=== PATIENT | female | born 1950 | race African-American/Black ===

== ENCOUNTER 2022-11-11 10:57 | Outpatient (REF) | payer MEDICAID, SELFPAY ==
[2022-11-11 15:05] LABS: Appearance Urine Clear; Color Urine Yellow; Glucose Urine UA Negative (Negative); Leukocyte Esterase Urine Negative (Negative); Nitrite Urine Negative (Negative); PH 5.5 (5.0-9.0); Urine Blood Negative (Negative); Urine Ketones Negative (Negative); Urine Protein Negative (Neg-Trace)
== END 2022-11-11 10:58 | disposition home or self-care (01) ==
LOC: HO.WFDLNP 10:57
PROVIDERS: Visit Provider Nurse Practitioner Family
DX: Z00.00 Encounter for general adult medical examination without abnormal findings (principal); R35.0 Frequency of micturition
CPT/HCPCS: 81003

== ENCOUNTER 2022-11-24 08:04 | Outpatient (REF) | payer MEDICAID, SELFPAY ==
[2022-11-24 11:16] LABS: MANUAL DIFF FLAG NO
[2022-11-24 11:43] LABS: Basophils Percent Auto 0.3 % (0-2); Eosinophils Absolute Auto 0.2 X10*3/uL (0.0-0.4); Eosinophils Percent Auto 3.6 % (0-4); Hematocrit 39.9 % (37.0-47.0); Hemoglobin 13.2 g/dl (12.0-16.0); Imm Gran Abs Auto 0.01 X10*3/uL (0.00-0.03); Imm Gran Pct Auto 0.2 % (0.0-0.4); Lymphocytes Absolute Auto 3.2 X10*3/uL (1.2-4.9); Lymphocytes Percent Auto 54.9 % (20-40); Mean Corpuscular HGB Conc 33.1 g/dl (31.0-35.0); Mean Corpuscular Hemoglobin 28.3 pg (27.0-33.0); Mean Corpuscular Volume 85.6 fL (80.0-98.0); Mean Platelet Volume 12.8 fL (9.4-12.3); Monocytes Absolute Auto 0.6 X10*3/uL (0.1-1.2); Monocytes Percent Auto 10.8 % (2-11); Neutrophils Absolute Auto 1.8 x10*3/uL (2.0-8.3); Neutrophils Percent Auto 30.2 % (45-73); Platelet Count 203 X10*3/uL (160-400); Red Blood Count 4.66 X10*6/uL (4.20-5.50); Red Cell Distribution Width 13.2 % (11.0-16.0); White Blood Count 5.8 X10*3/uL (4.8-10.8)
[2022-11-24 12:22] LABS: Alanine Aminotransferase 11 U/L (0-31); Albumin Level 3.8 g/dL (3.5-5.0); Alkaline Phosphatase 81 U/L (39-117); Anion Gap 13 (12-20); Aspartate Amino Transferase 19 U/L (5-31); Bilirubin Total 0.4 mg/dL (0.0-1.0); Blood Urea Nitrogen 27 mg/dL (9-16); Calcium 9.7 mg/dL (8.4-10.2); Carbon Dioxide 27 mmol/L (22-29); Chloride 105 mmol/L (96-108); Cholesterol 191 mg/dL; Estimated Glomerular Filt Rate 50; Glucose Fasting 88 mg/dL (60-99); HDL Cholesterol 51 mg/dL; LDL Cholesterol Calculated 122 mg/dl; Potassium 4.4 mmol/L (3.3-5.1); Sodium 141 mmol/L (135-145); Total Protein 6.9 g/dL (6.5-8.0); Triglycerides 92 mg/dL
[2022-11-24 12:27] LABS: TSH reflex Free T4 3.19 uIU/mL (0.32-4.0)
== END 2022-11-24 08:05 | disposition home or self-care (01) ==
LOC: HO.WFDLDS 08:04
PROVIDERS: Visit Provider Nurse Practitioner Family
DX: Z00.00 Encounter for general adult medical examination without abnormal findings (principal); R35.0 Frequency of micturition; H40.9 Unspecified glaucoma; M19.90 Unspecified osteoarthritis, unspecified site; I10 Essential (primary) hypertension
CPT/HCPCS: 36415; 80053; 80061; 84443; 85025

== ENCOUNTER 2022-12-24 08:23 | Outpatient (REF) | payer MEDICAID, SELFPAY ==
--- NOTE | ~2022-12-24 | MM_ITS ---
EXAMINATION: MM SCREENING DIGITAL BREAST TOMOSYNTHESIS, BILATERAL CLINICAL INFORMATION: Screening. Asymptomatic. The lifetime risk of breast cancer based on the Tyrer-Cuzick Model is 3.3%. COMPARISON: Mammography: This is a baseline mammogram. TECHNIQUE: Digital breast tomosynthesis is performed in both the craniocaudal and mediolateral oblique views along with computer-aided detection (CAD). Synthesized 2D images are generated from the tomosynthesis. FINDINGS: The breasts are almost entirely fatty (ACR BI-RADS breast composition Category a). There are no significant masses, abnormal calcifications, or other abnormalities. MM/MM tomosynthesis screening BI IMPRESSION: No mammographic evidence of malignancy. ASSESSMENT: BI-RADS BI-RADS 1 - Negative RECOMMENDATION: Routine annual mammography screening. 1 year F/U This examination should not preclude the clinical evaluation of a suspicious palpable abnormality. This patient's information was entered into a reminder system with a target due date for their next mammogram.
--- NOTE | ~2022-12-24 | MM_ITS ---
EXAMINATION: BONE DENSITOMETRY CLINICAL INDICATION: Asymptomatic menopausal state. COMPARISON: This is the patient's baseline examination. TECHNIQUE: Using a [employer] DXA System (software version: 13.1) manufactured by [employer], dual-energy x-ray absorptiometry was performed of the lumbar spine and left hip. The images are of good technical quality. Summary results are attached. FINDINGS: LEFT FEMUR, NECK: BMD 1.162 g/cm2, Z-score 1.0, T-score 0.9, normal. LEFT FEMUR, TOTAL: BMD 1.356 g/cm2, Z-score 2.6, T-score 2.8, normal. AP SPINE L1-L4 (excluding L3): The data of L1-L4 has been changed to exclude the L3 vertebral body, because degenerative sclerosis at this level may cause overestimation of lumbar spine density. BMD 1.380 g/cm2, Z-score 1.6, T-score 1.8, normal. IDENTIFIED RISK FACTORS: Menopause, hysterectomy, bilateral oophorectomy, thiazide, history of fracture (adult). HISTORY OF FRACTURE: None listed. MEDICATIONS: None listed. MM/XR DEXA axial skeleton IMPRESSION: 1. DIAGNOSIS: Normal bone density based on the lowest T-score value of 0.9 in the femoral neck applying World Health Organization criteria. 2. 10-YEAR FRACTURE RISK PREDICTION, FRAX: According to the guidelines, FRAX calculation should only be performed on patients in the osteopenia bone density category. Therefore, FRAX was not performed on this patient. 3. Treatment Recommendations: NOF guidelines recommend consideration for treatment in postmenopausal women and men age 50 and older presenting with the following: -A hip or vertebral (clinical or morphometric) fracture. -T-score less than or equal to -2.5 at the femoral neck or spine after appropriate evaluation to exclude secondary causes. -Low bone mass at the hip or spine and a 10-year fracture probability by FRAX of greater than or equal to 3% for hip fracture or greater than or equal to 20% for major osteoporotic fracture based on the [place] adapted WHO algorithm. 4. Other Recommendations: All treatment decisions require clinical judgment and consideration of individual patient factors, including patient preferences, comorbidities, previous drug use, risk factors not captured in the FRAX model (e.g. frailty, falls, vitamin D deficiency, increased bone turnover, interval significant decline in bone density) and possible under or overestimation of fracture risk by FRAX. FUTURE SCAN RECOMMENDATION: People with diagnosed cases of osteoporosis or at high risk for fracture should have regular bone mineral density tests. For patients eligible for Medicare, routine testing is allowed once every 2 years. The testing frequency can be increased to one year for patients who have rapidly progressing disease, those who are receiving or discontinuing medical therapy to restore bone mass, or have additional risk factors.
== END 2022-12-24 08:24 | disposition home or self-care (01) ==
LOC: HO.MAMMO 08:23
PROVIDERS: PCP Nurse Practitioner Family; Visit Provider Nurse Practitioner Family
DX: Z12.31 Encounter for screening mammogram for malignant neoplasm of breast (principal); Z13.820 Encounter for screening for osteoporosis; Z78.0 Asymptomatic menopausal state
CPT/HCPCS: 77063; 77067; 77080

== ENCOUNTER → 2022-12-24 08:30 | Outpatient (BNV) | payer MEDICAID, SELFPAY | PROVIDERS: PCP Nurse Practitioner Family; Visit Provider Radiology Diagnostic Radiology | DX: Z78.0 Asymptomatic menopausal state (principal) | CPT/HCPCS: 77063; 77067; 77080 ==

== ENCOUNTER 2022-12-25 09:06 | Outpatient (AMB) | payer MEDICAID, SELFPAY ==
--- NOTE | 2022-12-25 06:43 | A.OFFVIS_ITS ---
Intake Intake Visit Reasons: frequency Intake Note: NEW Patient presents today to established treatment for Urinary Frequency: Meds- None Allergies to Antibiotic- No Known Allergies Blood Thinner- None PVR- 38 ml Battery Starter Required: No Accompanied by: Daughter Allergies No Known Allergies Allergy (Verified 12/25/22 13:04) HPI HPI Comments History of Present Illness Details Araseli is a 72-year-old female, accompanied by her daughter, who presents today to the office with the complaints of urinary frequency. 12/25/2022? She is a Creole speaking female. She is accompanied by her daughter. Her daughter is present during the visit, who interprets for her. She mentions having daytime urinary frequency about every hour and wakes up five times at night to urinate. she also reports intermittent urinary leakage. However, denies hematuria, Denies recent UTI. She had constipation and she is taking OTC Senna with benefit. She reports normal bowel movements at this time. Her daughter states that she does not have any pain in the abdomen.?Her daughter states that she had total hysterectomy few years ago. The patient daughter is not unsure why it is done, but thinks that it may have been done due to premalignant cells on biopsy. On exam today there is no prolapse. Vaginal atrophy noted. There is no leak with valsalva appreciated. Evaluation today UA-- leukocytes: negative; blood: negative; catheterized urine PVR is 20mL. I did let them know that one of her BP medication, hydrochlorothiazide, is a diuretic and may be contributing to some of the urine frequency symptoms, but it is important that she takes her medication as prescribed by her PCP. Plan: Myrbetriq 25 mg daily and Vagifem 10 mcg twice a week. Follow up in 2 months. [facility] Medical History Arthritis Glaucoma Hypertension Surgical History History of hysterectomy Family History Father No problems noted. Mother No problems noted. Social History Housing: House Alcohol intake: never Patient Tobacco Use Status: Never used Tobacco e-Cigarette/Vaping Use: Never Used service: No Current occupational status: disabled Cognitive needs: No Hearing needs: Yes Vision needs: Yes (wears glasses) Review of Systems Const All systems reviewed & are unremarkable except as noted in HPI and below Reports no additional complaints Eyes Reports no additional complaints ENT Reports no additional complaints Card Denies dyspnea Resp Denies cough and Denies dyspnea GI Reports no additional complaints Reports no additional complaints Musc Reports no additional complaints Skin/Breast Denies rash and Denies unusual bruising Neuro Reports no additional complaints Psych Reports no additional complaints Endo Reports no additional complaints Benjie/Lymph Reports no additional complaints Aller/Immun Reports no additional complaints Physical Exam Const General: cooperative, healthy appearing and no acute distress Orientation/consciousness: patient oriented x3 HEENT Head: Yes normal to inspection, Yes normocephalic and Yes atraumatic Eyes Conjunctivae: conjunctivae normal Neck Neck: Yes normal visual inspection and Yes trachea midline Chest Chest palpation & inspection: normal inspection of the chest Resp Effort & Inspection: normal respiratory effort Cardio Rate: regular rate GI Inspection: Yes normal to inspection Palpation (GI): Soft to palpation General: No no CVA tenderness External Female Exam: normal external appearance Speculum Exam - Vagina: vagina atrophic Back/Spine/Pelvis Back: No no CVA tenderness Skin General skin exam: no rashes or lesions noted Neuro General: patient oriented x3 Extrem Right lower extremity: edema Left lower extremity: edema Psych Appearance: grossly normal Results AMB Urinalysis, Automated UA Leukoctes 0 Mary Jane/uL Last Edit by VALDEMAR Bolden on 12/25/22 09:26 UA Nitrite Negative Last Edit by VALDEMAR Bolden on 12/25/22 09:26 UA Urobilinogen 0.2 mg/dL Last Edit by VALDEMAR Bolden on 12/25/22 09:2 6 UA Protein 0 mg/dL Last Edit by VALDEMAR Bolden on 12/25/22 09:26 UA pH 7.0 Last Edit by Zeyad Calderón, RMA on 12/25/22 09:26 UA Blood 0 Yang/uL Last Edit by Zeyad Calderón A on 12/25/22 09:26 UA Specific [place] 1.015 Last Edit by Hebertcapricetrevon Goldirez, RMA on 12/25/22 09: 26 UA Ketone Negative Last Edit by Zeyad Calderón, A on 12/25/22 09:26 UA Bilirubin 0 mg/dL Last Edit by Zeyad Calderón, RMA on 12/25/22 09:26 UA Glucose 0 mg/dL Last Edit by Zeyad Calderón A on 12/25/22 09:26 Results Reviewed Results Reviewed: Laboratory Last Values Urine pH (Auto) 7.0 12/25/22 09:13 Specific [place] (Auto) 1.015 12/25/22 09:13 Urine Protein (Auto) 0 mg/dL 12/25/22 09:13 Glucose (UA)(Auto) 0 mg/dL 12/25/22 09:13 Urine Ketones (Auto) Negative 12/25/22 09:13 Urine Blood (Auto) 0 Yang/uL 12/25/22 09:13 Urine Nitrite (Auto) Negative 12/25/22 09:13 Urine Bilirubin (Auto) 0 mg/dL 12/25/22 09:13 Urine Urobilinogen (Auto) 0.2 mg/dL 12/25/22 09:13 Leukocyte Esterase (Auto) 0 Mary Jane/uL 12/25/22 09:13 Assessment & Plan Assessment & Plan (1) OAB (overactive bladder): Code(s): N32.81 - Overactive bladder (2) Vaginal atrophy: Code(s): N95.2 - Postmenopausal atrophic vaginitis Plan Myrbetriq 25 mg daily and Vagifem 10 mcg twice a week. Follow up in 2 months. Orders: Orders AMB Urinalysis Automated Today Z13.9 - Encounter for screening, unspecified AMB Post Void Residual by ultrasound Today N39.8 - Other specified disorders of urinary system Medications: New mirabegron ER (Myrbetriq) 25 mg PO DAILY 90 tabs 0RF estradiol (Vagifem) use at night Mon/Thurs 10 mcg vaginal 2XW 24 tabs 1RF Patient Instructions: The patient had an opportunity to ask questions regarding treatment plan. All questions were answered. Imaging, Laboratory studies and physical exam results were discussed and reviewed in detail. No major barriers to understanding were identified. The patient expressed understanding and agreement with the above treatment plan.? ? ? The patient is aware they should contact our office by phone for worsening of their current condition or the appearance of new symptoms. Compliance is encouraged with any medications and followup testing that is ordered.? ? ? It is a privilege to be allowed the opportunity to participate in the urologic care of your patient. If you have any questions or concerns regarding treatment for the above conditions please do not hesitate to contact me. The office telephone contact is [phone].? ? ? This note is constructed in part using voice recognition software. While every effort has been made to ensure accuracy administrator errors may have been included.? ? ? Yours sincerely,? ? ? Lashanda Cowart MD? ? Coding Level of Care Code New Pt Level 3 (72156) Diagnoses OAB (overactive bladder) N32.81 Vaginal atrophy N95.2
== END 2022-12-25 10:11 | disposition home or self-care (01) ==
PROVIDERS: PCP Hospitalist; Visit Provider Urology
DX: N32.81 Overactive bladder (principal); N95.2 Postmenopausal atrophic vaginitis
CPT/HCPCS: 99203

== ENCOUNTER → 2022-12-25 09:06 | Outpatient (BNVA) | payer MEDICAID, SELFPAY | PROVIDERS: PCP Hospitalist; Visit Provider Urology | DX: N32.81 Overactive bladder (principal); R35.0 Frequency of micturition; R35.1 Nocturia; N95.2 Postmenopausal atrophic vaginitis; Z79.899 Other long term (current) drug therapy | CPT/HCPCS: 99202 ==

== ENCOUNTER 2022-12-25 12:35 | Outpatient (AMB) | payer MEDICAID, SELFPAY ==
--- NOTE | 2022-12-25 12:39 | A.OFFPC_ITS ---
Vital Signs 12/25/22 12:53 Height 5 ft 6 in Weight 252 lb 2 oz BMI 40.7 BP 104/70 Blood Pressure Location Rt brachial Position Sitting Respiration 13 Pulse 80 Pulse Source Pulse Oximeter Temp 97.6 F Temp Source Temporal Artery Scan Pulse Oximetry (%) 99 Oxygen Delivery Method Room Air Intake Visit Reasons: f/u labs review, HTN Intake Note: Patient is here today for a follow up for lab review and hypertension. Patient is accompanied by her daughter who will also translate todays appointment. Engineer Process Required: Yes Engineer Process Name: Patient's daughter Accompanied by: Daughter Allergies No Known Allergies Allergy (Verified 12/25/22 13:04) Medication List - Last Reconciled 12/25/22 by Segundo Martinez CNP celecoxib (Celebrex) 200 mg PO DAILY 90 days dorzolamide-timolol (PF) 2-0.5 % 1 drp ophthalmic (eye) BID estradiol (Vagifem) 10 mcg vaginal 2XW hydrochlorothiazide 12.5 mg PO DAILY 90 days latanoprost 0.005% 1 drp ophthalmic (eye) QPM 90 days lidocaine 5% 1 patch topical DAILY 90 days losartan 50 mg PO DAILY 90 days mirabegron ER (Myrbetriq) 25 mg PO DAILY Tobacco use date assessed: 11/11/22 Fall risk assessment: No Falls in past year Last assessed Fall Risk: 12/25/22 Dental Screening Dental Screen Date: 12/25/22 Did you have a dental visit in the last 12 months?: Yes Did you have a dental problem in the last 6 months where you did not have access to dental care?: No Was dental information given to patient?: Patient has dentist HPI HPI Comments History of Present Illness Details 72-year-old Creole speaking female, accompanied by her daughter, presents for hypertension and recent labs review follow-up. She is on hydrochlorothiazide and losartan. She admits to taking her medication as prescribed. She reports tightness in her right knee with ambulation. She was seen by Urology today and was prescribed Mirabegron and Vagifem for OAB and was menopausal atrophic vaginitis. She recently had bone density scan and mammogram done. Results are pending. Interpretation by the patient's daughter per patient's preference. [facility] Medical History Arthritis Glaucoma Hypertension Surgical History History of hysterectomy Family History Father No problems noted. Mother No problems noted. Social History Housing: House Alcohol intake: never Patient Tobacco Use Status: Never used Tobacco e-Cigarette/Vaping Use: Never Used service: No Current occupational status: disabled Cognitive needs: No Hearing needs: Yes Vision needs: Yes (wears glasses) Questionnaire Thrive Questionnaire Date Thrive assessed: 11/11/22 ROHITH-7 AMB Questionnaire ROHITH-7 Date ROHITH - 7 assessed: 11/11/22 Source: Developed by Drs. Alin Gustafson, Radha Cardona, Andry Slater and colleagues, with an educational yamilex from [employer]. Review of Systems Const Details: Const Denies chills, Denies fatigue, Denies fever(s), Denies headache(s) and Denies weakness ENT Denies dizziness and Denies headache(s) Card Denies chest pain, Denies lightheadedness, Denies dyspnea and Denies other (Palpitations) Resp Denies cough, Denies dyspnea, Denies wheezing and Denies other ( shortness of breath) GI Denies abdominal pain, Denies melena, Denies hematochezia, Denies change in bowel habits, Denies dyspepsia and Denies nausea Denies hematuria and Denies dysuria Musc Reports right knee tightness, Denies abnormal gait, Denies myalgias, Denies arthralgias, Denies numbness and Denies tingling Skin/Breast Denies rash, Denies unusual bruising and Denies wounds Neuro Denies abnormal gait, Denies dizziness, Denies headache(s), Denies memory loss, Denies numbness, Denies Sensory deficit (Neuro), Denies tingling and Denies weakness Psych Denies anxiety and Denies depression Endo Denies fatigue Aller/Immun Denies wheezing Physical exam (Primary Care) Vital Signs: Last Vital Signs Temp 97.6 F 12/25/22 12:53 Pulse 80 12/25/22 12:53 Resp 13 12/25/22 12:53 BP 104/70 07/27/23 12:53 Pulse Ox 99 12/25/22 12:53 Oxygen Delivery Method Room Air 12/25/22 12:53 BMI result Body Mass Index 40.7 Tobacco/Smoking Status: Tobacco use Status Tobacco use date assessed 11/11/22 12/25/22 12:39 Patient Tobacco Use Status Never used Tobacco 12/25/22 12:39 e-Cigarette/Vaping Use Never Used 12/25/22 12:39 Thrive Assessment: Date of Thrive Assessment Date Thrive assessed 11/11/22 12/25/22 12:39 Const Other: General: no acute distress and well developed Nutritional Appearance: well nourished Orientation/consciousness: patient oriented x3 HENMT Head: Yes normocephalic and Yes atraumatic Eyes General: appearance normal, both eyes and all related structures Pupils: Equal, round and reactive pupils present EOM: EOMs intact bilaterally Resp Effort & Inspection: normal respiratory effort Auscultation: clear to auscultation bilaterally Cardio Rate: regular rate Rhythm: regular rhythm Heart sounds: S1 normal heart sound present, S2 normal heart sound present, no gallops, no murmurs and no rubs GI Palpation (GI): No Abdominal aortic bruit present, Soft to palpation, nontender, No hepatosplenomegaly present and No Rebound tenderness present Auscultation: normal bowel sounds General: Yes no CVA tenderness Back/Spine/Pelvis Back: no CVA tenderness Cervical Spine: cervical ROM normal and No Cervical spine tenderness Thoracic/Lumbar Spine: thoraco-lumbar ROM normal, No pain with thoraco-lumbar ROM, No thoracic spinal tenderness and No lumbar spinal tenderness Extrem General: Yes normal to inspection, No edema and No calf tenderness Skin General: warm and dry. Normal skin color. Normal skin turgor Lesions: no lesions Rashes: no rashes Trauma: no lacerations or abrasions Wounds: no wounds Nails: normal Neuro General: patient oriented x3, gait normal and no focal neuro deficit Cranial nerves: Yes Equal, round and reactive pupils present Cognition (Neuro): normal cognition Gait exam (Neuro): Normal gait present Sensory Exam: No Sensory deficit (Neuro) Psych Affect: normal affect Results AMB Urinalysis, Automated UA Leukoctes 0 Mary Jane/uL Last Edit by VALDEMAR Bolden on 12/25/22 09:26 UA Nitrite Negative Last Edit by Zeyad Calderón Mai on 12/25/22 09:26 UA Urobilinogen 0.2 mg/dL Last Edit by VALDEMAR Bolden on 12/25/22 09:2 6 UA Protein 0 mg/dL Last Edit by Zeyad Calderón A on 12/25/22 09:26 UA pH 7.0 Last Edit by Zeyad Calderón A on 12/25/22 09:26 UA Blood 0 Yang/uL Last Edit by Zeyad Calderón A on 12/25/22 09:26 UA Specific [place] 1.015 Last Edit by Zeyad Calderón Mai on 12/25/22 09: 26 UA Ketone Negative Last Edit by Zeyad Calderón Mai on 12/25/22 09:26 UA Bilirubin 0 mg/dL Last Edit by Zeyad Calderón Mai on 12/25/22 09:26 UA Glucose 0 mg/dL Last Edit by Zeyad Calderón [facility] on 12/25/22 09:26 Assessment and Plan Assessment & Plan (1) Hypertension: Code(s): I10 - Essential (primary) hypertension Plan: Blood pressure is controlled, 104/70 today, within goal of less than 140/90 Continue to take hydrochlorothiazide and losartan as prescribed Low-sodium diet encouraged Recent lab results reviewed with patient Follow-up with urology as planned Follow-up in 3 months or return sooner with symptoms or concerns Verbalized understanding and agreed with treatment plan. (2) Arthritis: Code(s): M19.90 - Unspecified osteoarthritis, unspecified site Plan: She reports tightness in her right knee with ambulation Celebrex as prescribed for pain or discomfort Warm/cold compresses encouraged PT referral made Return with worsening or new symptoms Verbalized understanding and agreed with treatment plan. Orders: Orders PT Evaluation and Treatment Today I10 - Essential (primary) hypertension Coding Level of Care Code Est Pt Level 3 (61445) Diagnoses Hypertension I10 Arthritis M19.90 Time Spent (min) 25
[2022-12-25 12:53] VITALS: BP 104/70; PULSE 80; RESP 13; TEMP 36.4; O2SAT 99; BMI 40.7
== END 2022-12-25 13:17 | disposition home or self-care (01) ==
PROVIDERS: PCP Nurse Practitioner Family; Visit Provider Nurse Practitioner Family
DX: I10 Essential (primary) hypertension (principal); M19.90 Unspecified osteoarthritis, unspecified site
CPT/HCPCS: 99213

== ENCOUNTER 2023-04-10 15:02 | Outpatient (AMB) | payer MEDICAID, SELFPAY ==
--- NOTE | 2023-04-10 15:16 | MHC.PC.OV ---
Vital Signs 04/10/23 15:19 04/10/23 15:31 Height 5 ft 6 in Weight 261 lb BMI 42.1 BP 144/68 H 126/70 Blood Pressure Location Rt brachial Rt brachial Position Sitting Sitting Respiration 14 Pulse 62 Pulse Source Pulse Oximeter Pulse Oximetry (%) 97 Oxygen Delivery Method Room Air Intake Visit Reasons: 3 mos HTN Intake Note: Patient is here to follow up for hypertension. Patient reports she is still in pain- bilateral hips and knees. [employer] Hel[employer] Required: No Accompanied by: Daughter Allergies No Known Allergies Allergy (Verified 04/10/23 15:25) Medication List - Last Reconciled 04/10/23 by Segundo Martinez CNP celecoxib (Celebrex) 200 mg PO DAILY 90 days dorzolamide-timolol (PF) 2-0.5 % 1 drp ophthalmic (eye) BID estradiol (Vagifem) 10 mcg vaginal 2XW hydrochlorothiazide 12.5 mg PO DAILY 90 days latanoprost 0.005% 1 drp ophthalmic (eye) QPM 90 days lidocaine 5% 1 patch topical DAILY 90 days losartan 50 mg PO DAILY 90 days mirabegron ER (Myrbetriq) 25 mg PO DAILY miscellaneous medical supply 1 cane for ambulation Tobacco use date assessed: 11/11/22 HPI HPI Comments History of Present Illness Details 72-year-old Creole speaking female, accompanied by her daughter, presents for hypertension follow-up She is on losartan and HCTZ which she admits to taking as prescribed She notes that her home BP readings are usually in the 1302/180s She reports pain to her bilateral hip and knee pain upon standing. She has history of arthritis of the hips and knees. Denies tingling or numbness. She states she ran out of lidocaine patch and that the patch would not stick on the skin; she prefers a cream. Her daughter notes that she canceled her mother's colonoscopy because it is an invasive procedure that her mother is no longer needs due to old age. [facility] Medical History Arthritis Glaucoma Hypertension Surgical History History of hysterectomy Family History Father No problems noted. Mother No problems noted. Social History Housing: House Alcohol intake: never Patient Tobacco Use Status: Never used Tobacco e-Cigarette/Vaping Use: Never Used service: No Current occupational status: disabled Cognitive needs: No Hearing needs: Yes Vision needs: Yes (wears glasses) Questionnaire Thrive Questionnaire Date Thrive assessed: 11/11/22 ROHITH-7 AMB Questionnaire ROHITH-7 Date ROHITH - 7 assessed: 11/11/22 Source: Developed by Drs. Alin Gustafson, Radha Cardona, Andry Slater and colleagues, with an educational yamilex from [employer]. Review of Systems Const Details: Const Denies chills, Denies fatigue, Denies fever(s), Denies headache(s) and Denies weakness ENT Denies dizziness and Denies headache(s) Card Denies chest pain, Denies lightheadedness, Denies dyspnea and Denies other (Palpitations) Resp Denies cough, Denies dyspnea, Denies wheezing and Denies other ( shortness of breath) GI Denies abdominal pain, Denies melena, Denies hematochezia, Denies change in bowel habits, Denies dyspepsia and Denies nausea Denies hematuria and Denies dysuria Musc Reports as per HPI Skin/Breast Denies rash, Denies unusual bruising and Denies wounds Neuro Denies abnormal gait, Denies dizziness, Denies headache(s), Denies memory loss, Denies numbness, Denies Sensory deficit (Neuro), Denies tingling and Denies weakness Psych Denies anxiety, Denies depression, Denies memory loss Endo Denies cold intolerance, Denies fatigue, Denies heat intolerance, Denies polydipsia and Denies polyuria Aller/Immun Denies wheezing Physical exam (Primary Care) Vital Signs: Last Vital Signs Pulse 62 04/10/23 15:19 Resp 14 04/10/23 15:19 BP 144/68 H 04/10/23 15:19 Pulse Ox 97 04/10/23 15:19 Oxygen Delivery Method Room Air 04/10/23 15:19 BMI result Body Mass Index 42.1 Tobacco/Smoking Status: Tobacco use Status Tobacco use date assessed 11/11/22 04/10/23 15:16 Patient Tobacco Use Status Never used Tobacco 04/10/23 15:16 e-Cigarette/Vaping Use Never Used 04/10/23 15:16 Thrive Assessment: Date of Thrive Assessment Date Thrive assessed 11/11/22 04/10/23 15:16 Const Other: General: no acute distress and well developed Nutritional Appearance: well nourished Orientation/consciousness: patient oriented x3 HENMT Head: Yes normocephalic and Yes atraumatic Eyes General: appearance normal, both eyes and all related structures Pupils: Equal, round and reactive pupils present EOM: EOMs intact bilaterally Resp Effort & Inspection: normal respiratory effort Auscultation: clear to auscultation bilaterally Cardio Rate: regular rate Rhythm: regular rhythm Heart sounds: S1 normal heart sound present, S2 normal heart sound present, no gallops, no murmurs and no rubs GI Palpation (GI): No Abdominal aortic bruit present, Soft to palpation, nontender, No hepatosplenomegaly present and No Rebound tenderness present Auscultation: normal bowel sounds General: Yes no CVA tenderness Back/Spine/Pelvis Back: no CVA tenderness Cervical Spine: cervical ROM normal and No Cervical spine tenderness Thoracic/Lumbar Spine: thoraco-lumbar ROM normal, No pain with thoraco-lumbar ROM, No thoracic spinal tenderness and No lumbar spinal tenderness Extrem General: Yes normal to inspection, No edema and No calf tenderness Skin General: warm and dry. Normal skin color. Normal skin turgor Lesions: no lesions Rashes: no rashes Trauma: no lacerations or abrasions Wounds: no wounds Nails: normal Neuro General: patient oriented x3, gait normal and no focal neuro deficit Cranial nerves: Yes Equal, round and reactive pupils present Cognition (Neuro): normal cognition Gait exam (Neuro): Normal gait present Sensory Exam: No Sensory deficit (Neuro) Psych Appearance: grossly normal Affect: normal affect Attitude: cooperative Thought process: Normal thought process present Assessment and Plan Assessment & Plan (1) Hypertension: Code(s): I10 - Essential (primary) hypertension Qualifiers: Hypertension type: primary hypertension Qualified Code(s): I10 - Essential (primary) hypertension Plan: Blood pressure is 126/70, within goal of less than 140/90 Continue with current treatment regimen Low-sodium diet encouraged Follow-up in 3 months or return sooner with symptoms or concerns Verbalized understanding and agreed with treatment plan. (2) Arthritis: Code(s): M19.90 - Unspecified osteoarthritis, unspecified site Plan: Reports pain to her bilateral hip and knee pain upon standing Diclofenac cream ordered. Advised to apply to painful areas as prescribed Continue to take Celebrex as prescribed Warm/cold compresses encouraged Physical therapy referral made Return with worsening or new symptoms Verbalized understanding and agreed with treatment plan. (3) Colon cancer screening: Code(s): Z12.11 - Encounter for screening for malignant neoplasm of colon Plan: Her daughter notes that she canceled her mother's colonoscopy because it is an invasive procedure that her mother is no longer needs due to old age. Patient's daughter notes that her mother will get Cologuard test done as recommended Cologuard ordered Orders: Orders PT Evaluation and Treatment Today M19.90 - Unspecified osteoarthritis, unspecified site Referrals Cologuard Test Z12.11 - Encounter for screening for malignant neoplasm of colon, Z12.12 - Encounter for screening for malignant neoplasm of rectum Medications: New diclofenac sodium 1% (Voltaren Arthritis Pain) apply to right shoulder 2 grams topical QID PRN 100 grams 2RF pain 30 days M25.511 - Pain in right shoulder Discontinued lidocaine 5% leave on most painful area for up to 12 hrs Discontinued Reason: Doctor's Order 1 patch topical DAILY 90 days 30 ea 1RF Coding Level of Care Code Est Pt Level 3 (29811) Diagnoses Primary hypertension I10 Hypertension type: primary hypertension Arthritis M19.90 Colon cancer screening Z12.11
[2023-04-10 15:19] VITALS: BP 144/68; PULSE 62; RESP 14; O2SAT 97; BMI 42.1
[2023-04-10 15:31] VITALS: BP 126/70
== END 2023-04-10 15:48 | disposition home or self-care (01) ==
PROVIDERS: PCP Nurse Practitioner Family; Visit Provider Nurse Practitioner Family
DX: I10 Essential (primary) hypertension (principal); M19.90 Unspecified osteoarthritis, unspecified site; Z12.11 Encounter for screening for malignant neoplasm of colon
CPT/HCPCS: 99213

== ENCOUNTER 2023-07-21 17:15 | Outpatient (AMB) | payer MEDICAID, SELFPAY ==
--- NOTE | 2023-07-21 17:20 | A.OFFPC_ITS ---
Vital Signs 07/21/23 17:23 Height 5 ft 6 in Weight 261 lb BMI 42.1 BP 118/74 Blood Pressure Location Lt brachial Pulse 64 Pulse Source Pulse Oximeter Temp 98.4 F Temp Source Oral Pulse Oximetry (%) 99 Oxygen Delivery Method Room Air Intake Visit Reasons: 3 mos HTN Intake Note: Patient is here to follow up on hypertension today. Allergies No Known Allergies Allergy (Verified 07/21/23 17:49) Medication List - Last Reconciled 07/21/23 by Segundo Martinez CNP acetazolamide 125 mg PO BID celecoxib (Celebrex) 200 mg PO DAILY 90 days diclofenac sodium 1% (Voltaren Arthritis Pain) 2 grams topical QID PRN 30 days dorzolamide-timolol (PF) 2-0.5 % 1 drp ophthalmic (eye) BID estradiol (Vagifem) 10 mcg vaginal 2XW hydrochlorothiazide 12.5 mg PO DAILY 90 days latanoprost 0.005% 1 drp ophthalmic (eye) QPM 90 days losartan 50 mg PO DAILY 90 days mirabegron ER (Myrbetriq) 25 mg PO DAILY miscellaneous medical supply 1 cane for ambulation Tobacco use date assessed: 07/21/23 Fall risk assessment: No Falls in past year Last assessed Fall Risk: 07/21/23 Dental Screening Dental Screen Date: 07/21/23 Did you have a dental visit in the last 12 months?: Yes Did you have a dental problem in the last 6 months where you did not have access to dental care?: No Was dental information given to patient?: Patient has dentist HPI HPI Comments History of Present Illness Details 72-year-old Creole speaking female, acco mpanied by her daughter, presents for hypertension follow-up She is on losartan and HCTZ which she admits to taking as prescribed Interpretation by the patient's daughter per patient's preference [facility] Medical History Arthritis Glaucoma Hypertension Surgical History History of hysterectomy Family History Father No problems noted. Mother No problems noted. Social History Housing: House Alcohol intake: never Patient Tobacco Use Status: Never used Tobacco e-Cigarette/Vaping Use: Never Used service: No Current occupational status: disabled Cognitive needs: No Hearing needs: Yes Vision needs: Yes (wears glasses) Questionnaire Thrive Questionnaire Date Thrive assessed: 11/11/22 ROHITH-7 AMB Questionnaire ROHITH-7 Date ROHITH - 7 assessed: 11/11/22 Source: Developed by Drs. Alin Gustafson, Radha Cardona, Andry Slater and colleagues, with an educational yamilex from [employer]. Review of Systems Const Details: Const Denies chills, Denies fatigue, Denies fever(s), Denies headache(s) and Denies weakness ENT Denies dizziness and Denies headache(s) Card Denies chest pain, Denies lightheadedness, Denies dyspnea and Denies other (Palpitations) Resp Denies cough, Denies dyspnea, Denies wheezing and Denies other ( shortness of breath) GI Denies abdominal pain, Denies melena, Denies hematochezia, Denies change in bowel habits, Denies dyspepsia and Denies nausea Denies hematuria and Denies dysuria Musc Denies abnormal gait, Denies myalgias, Denies arthralgias, Denies numbness and Denies tingling Skin/Breast Denies rash, Denies unusual bruising and Denies wounds Neuro Denies abnormal gait, Denies dizziness, Denies headache(s), Denies memory loss, Denies numbness, Denies Sensory deficit (Neuro), Denies tingling and Denies weakness Psych Denies anxiety, Denies depression, Denies memory loss Endo Denies cold intolerance, Denies fatigue, Denies heat intolerance, Denies polydipsia and Denies polyuria Aller/Immun Denies wheezing Physical exam (Primary Care) Vital Signs: Last Vital Signs Temp 98.4 F 07/21/23 17:23 Pulse 64 07/21/23 17:23 BP 118/74 07/21/23 17:23 Pulse Ox 99 07/21/23 17:23 Oxygen Delivery Method Room Air 07/21/23 17:23 BMI result Body Mass Index 42.1 Tobacco/Smoking Status: Tobacco use Status Tobacco use date assessed 07/21/23 07/21/23 17:28 Patient Tobacco Use Status Never used Tobacco 07/21/23 17:20 e-Cigarette/Vaping Use Never Used 07/21/23 17:20 Thrive Assessment: Date of Thrive Assessment Date Thrive assessed 11/11/22 07/21/23 17:20 Const Other: General: no acute distress and well developed Nutritional Appearance: well nourished Orientation/consciousness: patient oriented x3 HENMT Head: Yes normocephalic and Yes atraumatic Eyes General: appearance normal, both eyes and all related structures Pupils: Equal, round and reactive pupils present EOM: EOMs intact bilaterally Resp Effort & Inspection: normal respiratory effort Auscultation: clear to auscultation bilaterally Cardio Rate: regular rate Rhythm: regular rhythm Heart sounds: S1 normal heart sound present, S2 normal heart sound present, no gallops, no murmurs and no rubs GI Palpation (GI): No Abdominal aortic bruit present, Soft to palpation, nontender, No hepatosplenomegaly present and No Rebound tenderness present Auscultation: normal bowel sounds General: Yes no CVA tenderness Back/Spine/Pelvis Back: no CVA tenderness Cervical Spine: cervical ROM normal and No Cervical spine tenderness Thoracic/Lumbar Spine: thoraco-lumbar ROM normal, No pain with thoraco-lumbar ROM, No thoracic spinal tenderness and No lumbar spinal tenderness Extrem General: Yes normal to inspection, No edema and No calf tenderness Skin General: warm and dry. Normal skin color. Normal skin turgor Neuro General: patient oriented x3, gait normal and no focal neuro deficit Cranial nerves: Yes Equal, round and reactive pupils present Cognition (Neuro): normal cognition Gait exam (Neuro): Normal gait present Sensory Exam: No Sensory deficit (Neuro) Psych Appearance: grossly normal Affect: normal affect Attitude: cooperative Thought process: Normal thought process present Assessment and Plan Assessment & Plan (1) Hypertension: Code(s): I10 - Essential (primary) hypertension Qualifiers: Hypertension type: primary hypertension Qualified Code(s): I10 - Essential (primary) hypertension Plan: Blood pressure is controlled, 118/74 Continue current treatment regimen Low-sodium diet encouraged Follow-up in 3 months or return sooner with symptoms or concerns Verbalized understanding and agreed with treatment plan Coding Level of Care Code Est Pt Level 3 (51641) Diagnoses Primary hypertension I10 Hypertension type: primary hypertension
[2023-07-21 17:23] VITALS: BP 118/74; PULSE 64; TEMP 36.9; O2SAT 99; BMI 42.1
== END 2023-07-21 18:08 | disposition home or self-care (01) ==
PROVIDERS: PCP Nurse Practitioner Family; Visit Provider Nurse Practitioner Family
DX: I10 Essential (primary) hypertension (principal)
CPT/HCPCS: 99213

== ENCOUNTER 2023-08-28 15:34 | Outpatient (AMB) | payer MEDICAID, SELFPAY ==
[2023-08-28 15:40] VITALS: BP 138/84; PULSE 72; RESP 13; TEMP 36.2; O2SAT 99; BMI 39.1
--- NOTE | 2023-08-28 15:40 | A.OFFPC_ITS ---
Vital Signs 08/28/23 15:40 08/28/23 15:54 Height 5 ft 6 in Weight 242 lb 2 oz BMI 39.1 BP 138/84 116/70 Blood Pressure Location Rt brachial Lt brachial Position Sitting Sitting Respiration 13 Pulse 72 Pulse Source Pulse Oximeter Temp 97.2 F Temp Source Temporal Artery Scan Pulse Oximetry (%) 99 Oxygen Delivery Method Room Air Intake Visit Reasons: 09/10/23 cataracts right eye Manager Respiratory Care Required: Yes Manager Respiratory Care Name: Daughter Accompanied by: Daughter Allergies No Known Allergies Allergy (Verified 08/28/23 15:52) Medication List - Last Reconciled 08/28/23 by Segundo Martinez CNP acetazolamide 125 mg PO BID celecoxib (Celebrex) 200 mg PO DAILY 90 days diclofenac sodium 1% (Voltaren Arthritis Pain) 2 grams topical QID PRN 30 days dorzolamide-timolol (PF) 2-0.5 % 1 drp ophthalmic (eye) BID estradiol (Vagifem) 10 mcg vaginal 2XW hydrochlorothiazide 12.5 mg PO DAILY 90 days latanoprost 0.005% 1 drp ophthalmic (eye) QPM 90 days losartan 50 mg PO DAILY 90 days mirabegron ER (Myrbetriq) 25 mg PO DAILY miscellaneous medical supply 1 cane for ambulation Tobacco use date assessed: 07/21/23 Last assessed Fall Risk: 08/28/23 Dental Screening Dental Screen Date: 07/21/23 Did you have a dental visit in the last 12 months?: No Did you have a dental problem in the last 6 months where you did not have access to dental care?: No Was dental information given to patient?: Patient has dentist HPI HPI Comments History of Present Illness Details 72-year-old Creole speaking female, acco mpanied by her daughter, presents for preop evaluation for cataract surgery which she has scheduled for 09/10/2023 [facility] She admits to taking her medications as prescribed without adverse reactions She denies acute symptoms at this time Interpretation by the patient's daughter per patient's preference [facility] Medical History Arthritis Glaucoma Hypertension Surgical History History of hysterectomy Family History Father No problems noted. Mother No problems noted. Social History Housing: House Alcohol intake: never Patient Tobacco Use Status: Never used Tobacco e-Cigarette/Vaping Use: Never Used service: No Current occupational status: disabled Cognitive needs: No Hearing needs: No Vision needs: Yes (wears glasses) Questionnaire Thrive Questionnaire Date Thrive assessed: 11/11/22 ROHITH-7 AMB Questionnaire ROHITH-7 Date ROHITH - 7 assessed: 11/11/22 Source: Developed by Drs. Alin Gustafson, Radha Cardona, Andry Slater and colleagues, with an educational yamilex from [employer]. Review of Systems Const Details: Const Denies chills, Denies fatigue, Denies fever(s), Denies headache(s) and Denies weakness ENT Denies dizziness and Denies headache(s) Card Denies chest pain, Denies lightheadedness, Denies dyspnea and Denies other (Palpitations) Resp Denies cough, Denies dyspnea, Denies wheezing and Denies other ( shortness of breath) GI Denies abdominal pain, Denies melena, Denies hematochezia, Denies change in bowel habits, Denies dyspepsia and Denies nausea Denies hematuria and Denies dysuria Musc Denies abnormal gait, Denies myalgias, Denies arthralgias, Denies numbness and Denies tingling Skin/Breast Denies rash, Denies unusual bruising and Denies wounds Neuro Denies abnormal gait, Denies dizziness, Denies headache(s), Denies memory loss, Denies numbness, Denies Sensory deficit (Neuro), Denies tingling and Denies weakness Psych Denies anxiety, Denies depression, Denies memory loss Endo Denies cold intolerance, Denies fatigue, Denies heat intolerance, Denies polydipsia and Denies polyuria Aller/Immun Denies wheezing Physical exam (Primary Care) Tobacco/Smoking Status: Tobacco use Status Tobacco use date assessed 07/21/23 07/21/23 17:28 Patient Tobacco Use Status Never used Tobacco 07/21/23 17:20 e-Cigarette/Vaping Use Never Used 07/21/23 17:20 Thrive Assessment: Date of Thrive Assessment Date Thrive assessed 11/11/22 07/21/23 17:20 Const Other: General: no acute distress and well developed Nutritional Appearance: well nourished Orientation/consciousness: patient oriented x3 HENMT Head: Yes normocephalic and Yes atraumatic Eyes General: appearance normal, both eyes and all related structures Pupils: Equal, round and reactive pupils present EOM: EOMs intact bilaterally Resp Effort & Inspection: normal respiratory effort Auscultation: clear to auscultation bilaterally Cardio Rate: regular rate Rhythm: regular rhythm Heart sounds: S1 normal heart sound present, S2 normal heart sound present, no gallops, no murmurs and no rubs GI Palpation (GI): No Abdominal aortic bruit present, Soft to palpation, nontender, No hepatosplenomegaly present and No Rebound tenderness present Auscultation: normal bowel sounds General: Yes no CVA tenderness Back/Spine/Pelvis Back: no CVA tenderness Cervical Spine: cervical ROM normal and No Cervical spine tenderness Thoracic/Lumbar Spine: thoraco-lumbar ROM normal, No pain with thoraco-lumbar ROM, No thoracic spinal tenderness and No lumbar spinal tenderness Extrem General: Yes normal to inspection, No edema and No calf tenderness Skin General: warm and dry. Normal skin color. Normal skin turgor Neuro General: patient oriented x3, gait normal and no focal neuro deficit Cranial nerves: Yes Equal, round and reactive pupils present Cognition (Neuro): normal cognition Gait exam (Neuro): Normal gait present Sensory Exam: No Sensory deficit (Neuro) Psych Appearance: grossly normal Affect: normal affect Attitude: cooperative Thought process: Normal thought process present Assessment and Plan Assessment & Plan (1) Preop examination: Code(s): Z01.818 - Encounter for other preprocedural examination Plan: Physical exam is benign CBC and CMP ordered; advised to get blood work done before cataract surgery; will review and make changes as needed She currently has no medical contraindications for cataract surgery Follow-up with PCP as planned Verbalized understanding and agreed with the plan (2) Cataract, right eye: Code(s): H26.9 - Unspecified cataract Plan: As above Orders: Orders Complete Blood Count Auto Diff Today Z01.818 - Encounter for other preprocedural examination Comprehensive [place]. Panel Fast Today Z01.818 - Encounter for other preprocedural examination Coding Level of Care Code Est Pt Level 3 (83556) Diagnoses Preop examination Z01.818 Cataract, right eye H26.9
[2023-08-28 15:54] VITALS: BP 116/70
== END 2023-08-28 16:03 | disposition home or self-care (01) ==
PROVIDERS: PCP Nurse Practitioner Family; Visit Provider Nurse Practitioner Family
DX: Z01.818 Encounter for other preprocedural examination (principal); H26.9 Unspecified cataract
CPT/HCPCS: 99213

== ENCOUNTER 2023-09-01 08:15 | Outpatient (REF) | payer MEDICAID, SELFPAY ==
[2023-09-01 12:51] LABS: MANUAL DIFF FLAG NO
[2023-09-01 13:03] LABS: Basophils Percent Auto 0.2 % (0-2); Eosinophils Absolute Auto 0.1 X10*3/uL (0.0-0.4); Eosinophils Percent Auto 1.1 % (0-4); Hematocrit 42.3 % (37.0-47.0); Hemoglobin 14.3 g/dl (12.0-16.0); Imm Gran Abs Auto 0.01 X10*3/uL (0.00-0.03); Imm Gran Pct Auto 0.2 % (0.0-0.4); Lymphocytes Absolute Auto 2.5 X10*3/uL (1.2-4.9); Lymphocytes Percent Auto 47.7 % (20-40); Mean Corpuscular HGB Conc 33.8 g/dl (31.0-35.0); Mean Corpuscular Hemoglobin 28.2 pg (27.0-33.0); Mean Corpuscular Volume 83.4 fL (80.0-98.0); Mean Platelet Volume 12.6 fL (9.4-12.3); Monocytes Absolute Auto 0.5 X10*3/uL (0.1-1.2); Neutrophils Absolute Auto 2.2 x10*3/uL (2.0-8.3); Neutrophils Percent Auto 41.8 % (45-73); Platelet Count 190 X10*3/uL (160-400); Red Blood Count 5.07 X10*6/uL (4.20-5.50); White Blood Count 5.3 X10*3/uL (4.8-10.8)
[2023-09-01 13:27] LABS: Alanine Aminotransferase 12 U/L (0-31); Alkaline Phosphatase 86 U/L (39-117); Anion Gap 11 (12-20); Aspartate Amino Transferase 17 U/L (5-31); Bilirubin Total 0.3 mg/dL (0.0-1.0); Blood Urea Nitrogen 24 mg/dL (9-16); Calcium 9.5 mg/dL (8.4-10.2); Carbon Dioxide 26 mmol/L (22-29); Chloride 109 mmol/L (96-108); Estimated Glomerular Filt Rate 49; Glucose Fasting 109 mg/dL (60-99); Potassium 3.6 mmol/L (3.3-5.1); Sodium 142 mmol/L (135-145); Total Protein 7.1 g/dL (6.5-8.0)
== END 2023-09-01 08:16 | disposition home or self-care (01) ==
LOC: HO.WFDLDS 08:15
PROVIDERS: Visit Provider Nurse Practitioner Family
DX: Z01.818 Encounter for other preprocedural examination (principal)
CPT/HCPCS: 36415; 80053; 85025

== ENCOUNTER 2023-09-01 13:00 | Outpatient (RCR) | payer MEDICAID, SELFPAY ==
[2023-08-04 13:01] VITALS: BP 130/64; PULSE 74; O2SAT 100
--- NOTE | 2023-08-04 14:08 | MHC.PT.EP ---
[facility] [place] Office [place] Office [place] Office [address] Jimmy Asif [address] [phone] F: [phone] F: [phone] F: [phone] F: [phone] Physical Therapy Plan of Care Date of Evaluation: 08/04/23 Date of Surgery: Diagnosis: M19.90 Unspecified osteo-arthritis, unspecified site, by Segundo Martinez CNP date of script 04/10/23 Assessment: Pt is a 73 y/o female (primary language is [place] Creole) with PMH significant for glaucoma, HTN, and OA, referred to PT from PCP Segundo Martinez DNP, for treatment of unspecified OA (date of referral was 04/10/23 (PT was previously contacted in June and did not make appt Pt seen for PT eval on 08/04/23.. Pt presents to the office expressing pain in L>R knee, back, and L shoulder. She exhibits decreased mobility, decreased AROM of the L>R knee, (+) valgus deformity of R>L knee exhibiting step to pattern with use of std cane in R UE. Pt is obese and lives sedentary lifestyle with no history of performing any formal or regular exercise. Pt is accompanied by her daughter, Mariann who acted as her policy manager per pt request. Per report of her daughter, she leaves the house once a week for lutheran and for medical appts. She states her mother has an intolerance for ambulating in the stores much recently due to pain and fatigue. Pt will benefit from attending skilled PT services at a frequency of 1x-2x/week x 4-[address] and will rely on transportation from her daughter. Therapist educated patient in the benefit of attending PT twice weekly to accelerate gains, however patient's daughter states they will likely start with PT once a week due to her schedule. Pt was educated re: benefit of PT and goals of PT. As for start of treatment, pt was encouraged to get up and move every hour, avoid stationary positions, use std cane at all times, and try to complete 5 sit<>stand and stand<>sit at the kitchen table daily. She demonstrated ability to do this at time of evaluation. She was educated in the potential benefit of contacting the [facility] for trial or loan, she may benefit from obtaining a shower bench to reduce risk of fall in shower. Pt exhibits poor core strength, impaired strength of hip abd R>L, hip extensors L>R and overall conditioning. Pt reports while living in [facility] she was followed by an orthopedist who did inject her knees in the past with positive gains but has not established care with one in since moving. Pt may benefit from staging of her OA via xrays and consultation with an orthopedist due to her valgus deformity. She reports worse pain in her L knee vs her R. She was educated in the benefits and goals of PT to maximize her mobility and strength, and overall goals of reducing her knee pain. Frequency and Duration: The patient will be seen 1x/week x 4-6 weeks. Short Term Goals: 1. Improve sit<>stand and stand<>sit reps by 3 to total 8 in 30 seconds. 2. Demonstrate eccentric control during functional mobility. 3. Improve strength L>R hip abduction strength to 4/5. (IR: L:4-/5, R: 3/5). 4. Demonstrate glute bridge with good symmetry. [facility] Goals: 1. Ambulate in grocery store with daughter MOD I with good dynamic balance. 2. AAROM L>R knee to 110 degrees B. (IR:L 100, R 108 AROM). 3. Strength SLR to 5/5 bilaterally. 4. Negotiate five, 6inch steps with good dynamic balance with use of std cane and unilateral railing. 5. Pt will be I with HEP. Treatment Plan: Modalities to reduce pain, spasms and effusion. Manual therapy to restore motion and function. Therapeutic exercise to improve strength and flexibility. Neuromuscular re-education for posture and balance. Therapeutic activities to return to functional activities of daily living. Electronically signed by: Rhoda Rolle, PT, DPT Please sign and return to therapist. Thank you for your referral.
== END 2023-11-23 07:37 | disposition home or self-care (01) ==
LOC: HO.PTWFD 13:00
PROVIDERS: PCP Nurse Practitioner Family; Visit Provider Nurse Practitioner Family
DX: M25.551 Pain in right hip (principal); M25.552 Pain in left hip; M25.561 Pain in right knee; M25.562 Pain in left knee; G89.29 Other chronic pain
CPT/HCPCS: 97110; 97161

== ENCOUNTER 2023-10-19 15:48 | Outpatient (AMB) | payer MEDICAID, SELFPAY ==
[2023-10-19 15:49] VITALS: BP 140/70; PULSE 72; O2SAT 99; BMI 42.1
--- NOTE | 2023-10-19 15:49 | A.OFFPC_ITS ---
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 Allergies No Known Allergies Allergy (Verified 10/19/23 16:10) Medication List - Last Reconciled 10/19/23 by Segundo Martinez CNP acetazolamide 125 mg PO BID celecoxib (Celebrex) 200 mg PO DAILY 90 days diclofenac sodium 1% (Voltaren Arthritis Pain) 2 grams topical QID PRN 30 days dorzolamide-timolol (PF) 2-0.5 % 1 drp ophthalmic (eye) BID estradiol (Vagifem) 10 mcg vaginal 2XW hydrochlorothiazide 12.5 mg PO DAILY 90 days latanoprost 0.005% 1 drp ophthalmic (eye) QPM 90 days losartan 50 mg PO DAILY 90 days mirabegron ER (Myrbetriq) 25 mg PO DAILY miscellaneous medical supply 1 cane for ambulation Tobacco use date assessed: 07/21/23 Fall risk assessment: No Falls in past year Last assessed Fall Risk: 10/19/23 Dental Screening Dental Screen Date: 07/21/23 HPI HPI Comments History of Present Illness Details 72-year-old Creole speaking female, acco mpanied by her daughter, presents for hypertension follow-up She is on losartan and HCTZ which she admits to taking as prescribed She admits to maintaining low-sodium diet She offers no complaints and denies acute symptoms at this time Interpretation by the patient's daughter per patient's preference [facility] Medical History Glaucoma Arthritis Hypertension Surgical History History of hysterectomy Family History Father No problems noted. Mother No problems noted. Social History Housing: House Alcohol intake: never Patient Tobacco Use Status: Never used Tobacco e-Cigarette/Vaping Use: Never Used service: No Current occupational status: disabled Cognitive needs: No Hearing needs: No Vision needs: Yes (wears glasses) Questionnaire PHQ-9 Over the last 2 weeks, how often have you been bothered by any of the following problems? 1. Little interest or pleasure in doing things: not at all 2. Feeling down, depressed, or hopeless: not at all 3. Trouble falling or staying asleep, or sleeping too much: not at all 4. Feeling tired or having little energy: not at all 5. Poor appetite or overeating: not at all 6. Feeling bad about yourself - or that you are a failure or have let yourself or your family down: not at all 7. Trouble concentrating on things, such as reading the newspaper or watching television: not at all 8. Moving or speaking so slowly that other people could have noticed. Or the opposite - being so fidgety or restless that you have been moving around a lot more than usual: not at all 9. Thoughts that you would be better off or of hurting yourself in some way: not at all Total score: 0 Depression Screening Interpretation: Negative Depression Screening Done: Yes 37367 - PHQ-9 Billing: Yes Source: Developed by Drs. Alin Gustafson, Radha Cardona, Andry Slater and colleagues, with an educational yamilex from [employer]. Thrive Questionnaire Date Thrive assessed: 10/19/23 I am a: Patient What is your living situation today?: I have a steady place to live Within the past 12 months, did the food you bought not last and you didn't have the money to get more?: Sometimes True Within the past 12 months, did you worry whether your food would run out before you got money to buy more?: I choose not to answer this question Do you have trouble paying for medicines?: No Do you have trouble getting transportation to medical appointments?: No Do you have trouble paying your heating and electricity bill?: No Do you have trouble taking care of your child, family member or friend?: No Do you have trouble with day-to-day activities such as bathing, preparing meals, shopping, managing finances, etc.?: No Are you currently unemployed and looking for a job?: No Are you interested in more education?: No Currently or been in a relationship where the following occur: no concerns reported THRIVE Score: 1 AUDIT C Alcohol Use Questionnaire (AUDIT-C) 1. How often do you have a drink containing alcohol?: Never 3. How often do you have six or more drinks on one occasion?: Never Total Score: 0 Score Reviewed/Action Taken: Yes ROHITH-7 AMB Questionnaire ROHITH-7 Date ROHITH - 7 assessed: 10/19/23 Feeling nervous, anxious, or on edge: 0 = Not at all Not being able to stop or control worryin = Not at all Worrying too much about different things: 0 = Not at all Trouble relaxin = Not at all Being so restless that it is hard to sit still: 0 = Not at all Becoming easily annoyed or irritable: 0 = Not at all Feeling afraid as if something awful might happen: 0 = Not at all Total ROHITH-7 score (0-4 normal; 5-9 mild; 10-14 moderate; 15-21 severe): 0 Source: Developed by Drs. Alin Gustafson, Radha Cardona, Andry Slater and colleagues, with an educational yamilex from [employer]. ROHITH-7 Assessment Billing ROHITH-7 Assessment Tool: ROHITH-7 Assessment [id number] Review of Systems Const Details: Const Denies chills, Denies fatigue, Denies fever(s), Denies headache(s) and Denies weakness ENT Denies dizziness and Denies headache(s) Card Denies chest pain, Denies lightheadedness, Denies dyspnea and Denies other (Palpitations) Resp Denies cough, Denies dyspnea, Denies wheezing and Denies other ( shortness of breath) GI Denies abdominal pain, Denies melena, Denies hematochezia, Denies change in bowel habits, Denies dyspepsia and Denies nausea Denies hematuria and Denies dysuria Musc Denies abnormal gait, Denies myalgias, Denies arthralgias, Denies numbness and Denies tingling Skin/Breast Denies rash, Denies unusual bruising and Denies wounds Neuro Denies abnormal gait, Denies dizziness, Denies headache(s), Denies memory loss, Denies numbness, Denies Sensory deficit (Neuro), Denies tingling and Denies weakness Psych Denies anxiety, Denies depression, Denies memory loss Endo Denies cold intolerance, Denies fatigue, Denies heat intolerance, Denies polydipsia and Denies polyuria Aller/Immun Denies wheezing Physical exam (Primary Care) Vital Signs: Last Vital Signs Pulse 72 10/19/23 15:49 BP 140/70 H 10/19/23 15:49 Pulse Ox 99 10/19/23 15:49 BMI result Body Mass Index 42.1 Tobacco/Smoking Status: Tobacco use Status Tobacco use date assessed 07/21/23 10/19/23 15:51 Patient Tobacco Use Status Never used Tobacco 10/19/23 15:51 e-Cigarette/Vaping Use Never Used 10/19/23 15:51 PHQ-9: PHQ-9 Score PHQ-9: Total score 0 10/19/23 15:51 Depression Screening Interpretation: Negative Thrive Assessment: Date of Thrive Assessment Date Thrive assessed 10/19/23 10/19/23 15:51 Currently or been in a relationship where the following occur: no concerns reported Const Other: General: no acute distress and well developed Nutritional Appearance: well nourished Orientation/consciousness: patient oriented x3 HENMT Head: Yes normocephalic and Yes atraumatic Eyes General: appearance normal, both eyes and all related structures Pupils: Equal, round and reactive pupils present EOM: EOMs intact bilaterally Resp Effort & Inspection: normal respiratory effort Auscultation: clear to auscultation bilaterally Cardio Rate: regular rate Rhythm: regular rhythm Heart sounds: S1 normal heart sound present, S2 normal heart sound present, no gallops, no murmurs and no rubs GI Palpation (GI): No Abdominal aortic bruit present, Soft to palpation, nontender, No hepatosplenomegaly present and No Rebound tenderness present Auscultation: normal bowel sounds General: Yes no CVA tenderness Back/Spine/Pelvis Back: no CVA tenderness Cervical Spine: cervical ROM normal and No Cervical spine tenderness Thoracic/Lumbar Spine: thoraco-lumbar ROM normal, No pain with thoraco-lumbar ROM, No thoracic spinal tenderness and No lumbar spinal tenderness Extrem General: Yes normal to inspection, No edema and No calf tenderness Skin General: warm and dry. Normal skin color. Normal skin turgor Neuro General: patient oriented x3, gait normal and no focal neuro deficit Cranial nerves: Yes Equal, round and reactive pupils present Cognition (Neuro): normal cognition Gait exam (Neuro): Normal gait present Sensory Exam: No Sensory deficit (Neuro) Psych Appearance: grossly normal Affect: normal affect Attitude: cooperative Thought process: Normal thought process present Assessment and Plan Assessment & Plan (1) Hypertension: Code(s): I10 - Essential (primary) hypertension Qualifiers: Hypertension type: primary hypertension Qualified Code(s): I10 - Essential (primary) hypertension Plan: Resting blood pressure is 126/70, within goal of less than 140/90 Continue current treatment regimen Low-sodium diet and routine exercise encouraged Follow-up in 1 month for an extended physical exam or return sooner with symptoms or concerns Verbalized understanding and agreed with treatment plan Coding Level of Care Code Est Pt Level 3 (69860) Diagnoses Primary hypertension I10 Hypertension type: primary hypertension Additional Codes ROHITH-7 Assessment Billing - ROHITH-7 Assessment Tool: ROHITH-7 Assessment [id number] ([id number])
[2023-10-19 16:15] VITALS: BP 126/70
== END 2023-10-19 16:22 | disposition home or self-care (01) ==
PROVIDERS: PCP Nurse Practitioner Family; Visit Provider Nurse Practitioner Family
DX: I10 Essential (primary) hypertension (principal)
CPT/HCPCS: 99213

== ENCOUNTER 2024-01-11 10:54 | Outpatient (AMB) | payer MEDICAID, SELFPAY ==
--- NOTE | 2024-01-11 10:56 | A.OFFPC_ITS ---
Vital Signs 01/11/24 11:03 Height 5 ft 6 in Weight 262 lb 8 oz BMI 42.4 BP 144/88 H Blood Pressure Location Rt brachial Position Sitting Respiration 16 Pulse 69 Pulse Source Pulse Oximeter Temp 98.2 F Temp Source Oral Pulse Oximetry (%) 98 Oxygen Delivery Method Room Air Intake Visit Reasons: PE Intake Note: patient here for CPE Pediatric Care Coordinator Required: No Is last menstrual period known: No Post menopausal: No Patient : No Allergies No Known Allergies Allergy (Verified 01/11/24 11:18) Medication List - Last Reconciled 01/11/24 by Segundo Martinez CNP acetazolamide 125 mg PO BID celecoxib (Celebrex) 200 mg PO DAILY 90 days diclofenac sodium 1% (Voltaren Arthritis Pain) 2 grams topical QID PRN 30 days dorzolamide-timolol (PF) 2-0.5 % 1 drp ophthalmic (eye) BID hydrochlorothiazide 12.5 mg PO DAILY 90 days latanoprost 0.005% 1 drp ophthalmic (eye) QPM 90 days losartan 50 mg PO DAILY 90 days mirabegron ER (Myrbetriq) 25 mg PO DAILY miscellaneous medical supply 1 cane for ambulation Tobacco use date assessed: 01/11/24 Fall risk assessment: No Falls in past year Last assessed Fall Risk: 01/11/24 Dental Screening Dental Screen Date: 01/11/24 Did you have a dental visit in the last 12 months?: No Did you have a dental problem in the last 6 months where you did not have access to dental care?: No Was dental information given to patient?: Patient has dentist HPI HPI Comments History of Present Illness Details 73-year-old Creole speaking female, acco mpanied by her daughter, presents for an extended physical exam She has past medical history significant for hypertension, glaucoma both eyes, cataract both eyes, overactive bladder, and arthritis of back, bilateral shoulders, knees, and hips She admits to taking her medications as prescribed without adverse reactions. She notes that she has not been taking losartan for the past 2 days because the medication has not been refilled by the pharmacy. Losartan refill was sent on 01/07/2024 She notes that she had cataract surgery in both eyes from [facility] [place], a few months ago. Her daughter would call to schedule a follow up eye appointment According to her daughter, the patient generally makes healthy dietary choices, sleeps well, an exercises routinely No acute symptoms at this time Last mammogram was 11/2022: Negative Last DEXA scan was in 11/2022: Normal She notes that she was vaccinated for pneumonia She has not been vaccinated for shingles She is followed by [facility] but has not followed up in over a year Nonsmoker. She does not drink alcohol. No recreational drug use PFSH Medical History Glaucoma Arthritis Hypertension Surgical History (Reviewed 10/19/23 @ 15:50 by Denis Simmons [facility]) History of hysterectomy Family History (Updated 01/11/24 @ 11:03 by Nina Mims) Father No problems noted. Mother No problems noted. Social History Housing: House Alcohol intake: never Patient Tobacco Use Status: Never used Tobacco e-Cigarette/Vaping Use: Never Used service: No Current occupational status: disabled Current occupational exposures/hazards: No Cognitive needs: No Hearing needs: No Vision needs: Yes (wears glasses) Questionnaire PHQ-9 Over the last 2 weeks, how often have you been bothered by any of the following problems? 1. Little interest or pleasure in doing things: not at all 2. Feeling down, depressed, or hopeless: not at all 3. Trouble falling or staying asleep, or sleeping too much: not at all 4. Feeling tired or having little energy: not at all 5. Poor appetite or overeating: not at all 6. Feeling bad about yourself - or that you are a failure or have let yourself or your family down: not at all 7. Trouble concentrating on things, such as reading the newspaper or watching television: not at all 8. Moving or speaking so slowly that other people could have noticed. Or the opposite - being so fidgety or restless that you have been moving around a lot more than usual: not at all 9. Thoughts that you would be better off or of hurting yourself in some way: not at all Total score: 0 Depression Screening Interpretation: Negative Depression Screening Done: Yes 47938 - PHQ-9 Billing: Yes Source: Developed by Drs. Alin Gustafson, Radha Cardona, Andry Slater and colleagues, with an educational yamilex from [employer]. Thrive Questionnaire Date Thrive assessed: 01/11/24 I am a: Patient What is your living situation today?: I have a steady place to live Within the past 12 months, did the food you bought not last and you didn't have the money to get more?: Never true Within the past 12 months, did you worry whether your food would run out before you got money to buy more?: Never true Do you have trouble paying for medicines?: No Do you have trouble getting transportation to medical appointments?: No Do you have trouble paying your heating and electricity bill?: No Do you have trouble taking care of your child, family member or friend?: No Do you have trouble with day-to-day activities such as bathing, preparing meals, shopping, managing finances, etc.?: No Are you currently unemployed and looking for a job?: No Are you interested in more education?: No Please select the resources that you would like help with: None Currently or been in a relationship where the following occur: No concerns reported THRIVE Score: 0 AUDIT C Alcohol Use Questionnaire (AUDIT-C) 1. How often do you have a drink containing alcohol?: Never Total Score: 0 Score Reviewed/Action Taken: Yes ROHITH-7 AMB Questionnaire ROHITH-7 Date ROHITH - 7 assessed: 01/11/24 Feeling nervous, anxious, or on edge: 0 = Not at all Not being able to stop or control worryin = Not at all Worrying too much about different things: 0 = Not at all Trouble relaxin = Not at all Being so restless that it is hard to sit still: 0 = Not at all Becoming easily annoyed or irritable: 0 = Not at all Feeling afraid as if something awful might happen: 0 = Not at all Total ROHITH-7 score (0-4 normal; 5-9 mild; 10-14 moderate; 15-21 severe): 0 Source: Developed by Drs. Alin Gustafson, Radha Cardona, Andry Slater and colleagues, with an educational yamilex from [employer]. ROHITH-7 Assessment Billing ROHITH-7 Assessment Tool: ROHITH-7 Assessment 07808 Review of Systems Const Details: Denies chills, Denies fatigue, Denies fever(s), Denies headache(s) and Denies weakness HEENT Denies change in vision, Denies dizziness, Denies headache(s), Denies hearing loss, Denies nasal congestion, Denies sinus pain, Denies sinus pressure and Denies sore throat Card Denies chest pain, Denies lightheadedness, Denies dyspnea and Denies other (palpitations) Resp Denies cough, Denies dyspnea and Denies wheezing GI Denies abdominal pain, Denies melena, Denies hematochezia, Denies change in bowel habits, Denies dyspepsia and Denies nausea Denies hematuria and Denies dysuria Musc Denies abnormal gait, Denies myalgias, Denies arthralgias, Denies numbness and Denies tingling Skin/Breast Denies rash, Denies unusual bruising and Denies wounds Neuro Denies abnormal gait, Denies dizziness, Denies headache(s), Denies memory loss, Denies numbness, Denies Sensory deficit (Neuro), Denies tingling and Denies weakness Psych Denies anxiety, Denies depression and Denies memory loss Endo Denies cold intolerance, Denies fatigue, Denies heat intolerance, Denies polydipsia and Denies polyuria Benjie/Lymph Denies easy bleeding and Denies easy bruising Aller/Immun Denies wheezing Physical exam (Primary Care) Vital Signs: Last Vital Signs Temp 98.2 F 01/11/24 11:03 Pulse 69 01/11/24 11:03 Resp 16 01/11/24 11:03 BP 144/88 H 01/11/24 11:03 Pulse Ox 98 01/11/24 11:03 Oxygen Delivery Method Room Air 01/11/24 11:03 BMI result Body Mass Index 42.4 Tobacco/Smoking Status: Tobacco use Status Tobacco use date assessed 01/11/24 01/11/24 11:03 Patient Tobacco Use Status Never used Tobacco 01/11/24 10:59 e-Cigarette/Vaping Use Never Used 01/11/24 10:59 PHQ-9: PHQ-9 Score PHQ-9: Total score 0 01/11/24 11:20 Depression Screening Interpretation: Negative Thrive Assessment: Date of Thrive Assessment Date Thrive assessed 08/12/24 08/12/24 11:09 Currently or been in a relationship where the following occur: No concerns reported Const Other: General: no acute distress, well developed, alert and awake Nutritional Appearance: well nourished Orientation/consciousness: patient oriented x3 [facility] Head: Yes normocephalic and Yes atraumatic Ears: hearing grossly normal bilaterally and TM's normal bilaterally General nose exam: Normal external nose present and Normal nares present Mouth: Normal oral and palatal mucosa present and moist mucous membranes Teeth and gingiva: dentition normal Throat: Yes oropharynx normal Eyes Pupils: Equal, round and reactive pupils present and Pupil accommodation reflex normal EOM: EOMs intact bilaterally Neck Neck: Yes normal visual inspection, Yes no lymphadenopathy and Yes trachea midline Thyroid: Thyroid normal Carotids: no bruits Lymphatic: no lymphadenopathy noted Chest Chest palpation & inspection: normal inspection of the chest Resp Effort & Inspection: normal respiratory effort Auscultation: clear to auscultation bilaterally Cardio Rate: regular rate Rhythm: regular rhythm Heart sounds: S1 normal heart sound present, S2 normal heart sound present, no gallops, no murmurs and no rubs Bruits: no abdominal aortic bruits and no carotid bruits GI Palpation (GI): No Abdominal aortic bruit present, Soft to palpation, nontender, No hepatosplenomegaly present and No Rebound tenderness present Auscultation: normal bowel sounds General: Yes no CVA tenderness Back/Spine/Pelvis Back: no CVA tenderness Cervical Spine: cervical ROM normal and No Cervical spine tenderness Thoracic/Lumbar Spine: thoraco-lumbar ROM normal, No pain with thoraco-lumbar ROM, No thoracic spinal tenderness and No lumbar spinal tenderness Skin General: warm and dry. Normal skin color. Normal skin turgor Lesions: no lesions Rashes: no rashes Trauma: no lacerations or abrasions Wounds: no wounds Nails: normal Neuro General: patient oriented x3, gait normal and CN's II-XI intact bilaterally Cranial nerves: Yes Equal, round and reactive pupils present Cognition (Neuro): normal cognition Gait exam (Neuro): Normal gait present Motor exam (neuro): 5/5 motor strength present throughout Sensory Exam: No Sensory deficit (Neuro) Deep tendon reflexes (DTR's): Right patellar reflex intensity grade: 2+ and Left patellar reflex intensity grade: 2+ Extrem General: Yes normal to inspection, No edema and No calf tenderness Psych Appearance: grossly normal Affect: normal affect Attitude: cooperative Thought process: Normal thought process present Assessment and Plan Assessment & Plan (1) Normal physical examination, routine: Code(s): Z00.00 - Encounter for general adult medical examination without abnormal findings Plan: No significant physical restrictions or limitations noted Continue current treatment regimen Healthy diet and routine exercise encouraged Encouraged to schedule appointments for routine eye exam, mammogram, and Urology follow-up Advised to get lab work done a few days before her next visit Return in 1 month for hypertension and labs review or sooner with symptoms or concerns Verbalized understanding and agreed with the treatment plan (2) Hypertension: Code(s): I10 - Essential (primary) hypertension Qualifiers: Hypertension type: primary hypertension Qualified Code(s): I10 - Essential (primary) hypertension Plan: Resting blood pressure is 144/88, slightly above goal of less than 140/90 She has been taking hydrochlorothiazide as prescribed. However, has not been taking losartan since she ran out of medication 2 days ago. 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 She may request the vaccine from her local pharmacy Verbalized understanding and agreed with the plan (4) Laboratory tests ordered as part of a complete physical exam (CPE): Code(s): Z00. - Encounter for general adult medical examination without abnormal findings Plan: Fasting labs ordered as part of a complete physical exam. Advised to fast for at least 10 hours before getting labs drawn. May drink water Verbalized understanding and agreed with treatment plan. Orders: Orders TSH reflex Free T4 Today Z00.00 - Encounter for general adult medical examination without abnormal findings UA CC w/rflx Micro + Cult Today Z00.00 - Encounter for general adult medical examination without abnormal findings Microalbumin, Random (w Creat) Today Z00.00 - Encounter for general adult medical examination without abnormal findings Lipid Panel Today Z00.00 - Encounter for general adult medical examination without abnormal findings Glucose Fasting Today Z00.00 - Encounter for general adult medical examination without abnormal findings Coding Level of Care Code Est Pt Level 3 (10152) Est Pt Prev Care >65y(42157) Diagnoses Normal physical examination, routine Z00.00 Primary hypertension I10 Hypertension type: primary hypertension Vaccine counseling Z71.85 Laboratory tests ordered as part of a complete physical exam (CPE) Z00.00 Additional Codes ROHITH-7 Assessment Billing - ROHITH-7 Assessment Tool: ROHITH-7 Assessment 35239 ([id number])
[2024-01-11 11:03] VITALS: BP 144/88; PULSE 69; RESP 16; TEMP 36.8; O2SAT 98; BMI 42.4
== END 2024-01-11 11:52 | disposition home or self-care (01) ==
PROVIDERS: PCP Nurse Practitioner Family; Visit Provider Nurse Practitioner Family
DX: Z00.00 Encounter for general adult medical examination without abnormal findings (principal); I10 Essential (primary) hypertension; Z71.85 Encounter for immunization safety counseling
CPT/HCPCS: 99397

== ENCOUNTER 2024-02-15 08:16 | Outpatient (AMB) | payer MEDICAID, SELFPAY ==
--- NOTE | 2024-02-15 08:28 | A.OFFPC_ITS ---
Vital Signs 02/15/24 08:39 02/15/24 08:51 Height 5 ft 6 in Weight 258 lb 2 oz BMI 41.7 BP 140/80 H 120/72 Blood Pressure Location Rt brachial Position Sitting Respiration 16 Pulse 71 Pulse Source Pulse Oximeter Temp 97.8 F Temp Source Oral Pulse Oximetry (%) 99 Oxygen Delivery Method Room Air Intake Visit Reasons: B/P check Intake Note: patient here for blood pressure check Sales And Service Specialist Required: No Is last menstrual period known: No Post menopausal: No Patient : No Allergies No Known Allergies Allergy (Verified 02/15/24 08:48) Medication List - Last Reconciled 02/15/24 by Segundo Martinez CNP acetazolamide 125 mg PO BID celecoxib (Celebrex) 200 mg PO DAILY 90 days diclofenac sodium 1% (Voltaren Arthritis Pain) 2 grams topical QID PRN 30 days dorzolamide-timolol (PF) 2-0.5 % 1 drp ophthalmic (eye) BID hydrochlorothiazide 12.5 mg PO DAILY 90 days latanoprost 0.005% 1 drp ophthalmic (eye) QPM 90 days losartan 50 mg PO DAILY 90 days miscellaneous medical supply 1 cane for ambulation Tobacco use date assessed: 02/15/24 Fall risk assessment: No Falls in past year Last assessed Fall Risk: 02/15/24 Dental Screening Dental Screen Date: 01/11/24 Did you have a dental visit in the last 12 months?: No Did you have a dental problem in the last 6 months where you did not have access to dental care?: No Was dental information given to patient?: Patient has dentist HPI HPI Comments History of Present Illness Details 73-year-old female, accompanied by her julio bautista, presents for hypertension follow-up She admits to taking her medications as prescribed without adverse reactions She offers no complaints and denies acute symptoms at this time She had lab work done today, immediately before this visit [facility] Medical History Glaucoma Arthritis Hypertension Surgical History History of hysterectomy Family History (Updated 01/11/24 @ 11:03 by Nina Mims) Father No problems noted. Mother No problems noted. Social History (Reviewed 10/19/23 @ 15:50 by [facility] Alcohol intake: never Patient Tobacco Use Status: Never used Tobacco e-Cigarette/Vaping Use: Never Used service: No Current occupational status: disabled Current occupational exposures/hazards: No Cognitive needs: No Hearing needs: No Vision needs: Yes (wears glasses) Questionnaire Thrive Questionnaire Date Thrive assessed: 01/11/24 ROHITH-7 AMB Questionnaire ROHITH-7 Date ROHITH - 7 assessed: 01/11/24 Source: Developed by Drs. Alin Gustafson, Radha Cardona, Andry Slater and colleagues, with an educational yamilex from [employer]. Review of Systems Const Details: Const Denies chills, Denies fatigue, Denies fever(s), Denies headache(s) and Denies weakness ENT Denies dizziness and Denies headache(s) Card Denies chest pain, Denies lightheadedness, Denies dyspnea and Denies other (Palpitations) Resp Denies cough, Denies dyspnea, Denies wheezing and Denies other ( shortness of breath) GI Denies abdominal pain, Denies melena, Denies hematochezia, Denies change in bowel habits, Denies dyspepsia and Denies nausea Denies hematuria and Denies dysuria Musc Denies abnormal gait, Denies myalgias, Denies arthralgias, Denies numbness and Denies tingling Skin/Breast Denies rash, Denies unusual bruising and Denies wounds Neuro Denies abnormal gait, Denies dizziness, Denies headache(s), Denies memory loss, Denies numbness, Denies Sensory deficit (Neuro), Denies tingling and Denies weakness Psych Denies anxiety, Denies depression, Denies memory loss Endo Denies cold intolerance, Denies fatigue, Denies heat intolerance, Denies polydipsia and Denies polyuria Aller/Immun Denies wheezing Physical exam (Primary Care) Vital Signs: Last Vital Signs Temp 97.8 F 02/15/24 08:39 Pulse 71 02/15/24 08:39 Resp 16 02/15/24 08:39 BP 140/80 H 02/15/24 08:39 Pulse Ox 99 02/15/24 08:39 Oxygen Delivery Method Room Air 02/15/24 08:39 BMI result Body Mass Index 41.7 Tobacco/Smoking Status: Tobacco use Status Tobacco use date assessed 02/15/24 02/15/24 08:42 Patient Tobacco Use Status Never used Tobacco 02/15/24 08:30 e-Cigarette/Vaping Use Never Used 02/15/24 08:30 Thrive Assessment: Date of Thrive Assessment Date Thrive assessed 01/11/24 02/15/24 08:30 Const Other: General: no acute distress and well developed Nutritional Appearance: well nourished Orientation/consciousness: patient oriented x3 [facility] Head: Yes normocephalic and Yes atraumatic Eyes General: appearance normal, both eyes and all related structures Pupils: Equal, round and reactive pupils present EOM: EOMs intact bilaterally Resp Effort & Inspection: normal respiratory effort Auscultation: clear to auscultation bilaterally Cardio Rate: regular rate Rhythm: regular rhythm Heart sounds: S1 normal heart sound present, S2 normal heart sound present, no gallops, no murmurs and no rubs GI Palpation (GI): No Abdominal aortic bruit present, Soft to palpation, nontender, No hepatosplenomegaly present and No Rebound tenderness present Auscultation: normal bowel sounds General: Yes no CVA tenderness Back/Spine/Pelvis Back: no CVA tenderness Cervical Spine: cervical ROM normal and No Cervical spine tenderness Thoracic/Lumbar Spine: thoraco-lumbar ROM normal, No pain with thoraco-lumbar ROM, No thoracic spinal tenderness and No lumbar spinal tenderness Extrem General: Yes normal to inspection, No edema and No calf tenderness Skin General: warm and dry. Normal skin color. Normal skin turgor Neuro General: patient oriented x3, gait normal and no focal neuro deficit Cranial nerves: Yes Equal, round and reactive pupils present Cognition (Neuro): normal cognition Gait exam (Neuro): Normal gait present Sensory Exam: No Sensory deficit (Neuro) Psych Appearance: grossly normal Affect: normal affect Attitude: cooperative Thought process: Normal thought process present Assessment and Plan Assessment & Plan (1) Hypertension: Code(s): I10 - Essential (primary) hypertension Qualifiers: Hypertension type: primary hypertension Qualified Code(s): I10 - Essential (primary) hypertension Plan: Resting blood pressure is 120/72, within goal of less than 140/90 Continue current treatment regimen Low-sodium diet and routine exercise encouraged She had labs done today. Will review results and make changes as needed Follow-up in 2 months or sooner with symptoms or concerns Verbalized understanding and agreed with treatment plan Medications: Refilled diclofenac sodium 1% (Voltaren Arthritis Pain) apply to right shoulder 2 grams topical QID 30 days PRN 100 grams 2RF pain M25.511 - Pain in right shoulder Coding Level of Care Code Est Pt Level 3 (55274) Diagnoses Primary hypertension I10 Hypertension type: primary hypertension
[2024-02-15 08:39] VITALS: BP 140/80; PULSE 71; RESP 16; TEMP 36.6; O2SAT 99; BMI 41.7
[2024-02-15 08:51] VITALS: BP 120/72
== END 2024-02-15 09:01 | disposition home or self-care (01) ==
PROVIDERS: PCP Nurse Practitioner Family; Visit Provider Nurse Practitioner Family
DX: I10 Essential (primary) hypertension (principal)

== ENCOUNTER → 2024-02-15 08:16 | Outpatient (BNVA) | payer MEDICAID, SELFPAY | PROVIDERS: PCP Nurse Practitioner Family; Visit Provider Nurse Practitioner Family ==

== ENCOUNTER 2024-02-15 08:26 | Outpatient (REF) | payer MEDICAID, SELFPAY ==
[2024-02-15 11:36] LABS: Appearance Urine Clear; Color Urine Yellow; Glucose Urine UA Negative (Negative); Leukocyte Esterase Urine Negative (Negative); Nitrite Urine Negative (Negative); Specific Gravity - Urine 1.015 (1.005-1.025); Urine Blood Negative (Negative); Urine Ketones Negative (Negative); Urine Protein Negative (Neg-Trace)
[2024-02-15 12:28] LABS: Cholesterol 191 mg/dL (<200); Glucose Fasting 108 mg/dL (60-99); HDL Cholesterol 53 mg/dL (>40); LDL Cholesterol Calculated 123 mg/dL (<100); TSH reflex Free T4 2.55 uIU/mL (0.32-4.0); Triglycerides 76 mg/dL (<150)
[2024-02-15 12:55] LABS: Creatinine Urine 92.92 mg/dL; Microalbumin Urine < 5.0 mg/L
== END 2024-02-15 08:27 | disposition home or self-care (01) ==
LOC: HO.WFDLDS 08:26
PROVIDERS: Visit Provider Nurse Practitioner Family
DX: Z00.00 Encounter for general adult medical examination without abnormal findings (principal); Z01.89 Encounter for other specified special examinations; I10 Essential (primary) hypertension
CPT/HCPCS: 36415; 80061; 81003; 82043; 82570; 82947; 84443; 99212

== ENCOUNTER 2024-04-07 13:34 | Outpatient (AMB) | payer MEDICAID, SELFPAY ==
--- NOTE | 2024-04-06 19:51 | A.OFFVIS_ITS ---
Intake Visit Reasons: 2m/OAB/ Urinary Frequency Intake Note: Patient is present for OAB/URINARY FREQUENCY Urology Medication:NONE Antibiotic Allergy:NONE Blood Thinner:NONE Master Certified Rv Technician Required: No Allergies No Known Allergies Allergy (Verified 04/07/24 13:45) Medication List - Last Reconciled 04/07/24 by Lashanda Cowart MD acetazolamide 125 mg PO BID celecoxib (Celebrex) 200 mg PO DAILY 90 days diclofenac sodium 1% (Voltaren Arthritis Pain) 2 grams topical QID PRN 30 days dorzolamide-timolol (PF) 2-0.5 % 1 drp ophthalmic (eye) BID hydrochlorothiazide 12.5 mg PO DAILY 90 days latanoprost 0.005% 1 drp ophthalmic (eye) QPM 90 days losartan 50 mg PO DAILY 90 days miscellaneous medical supply 1 cane for ambulation solifenacin (Vesicare) 10 mg PO DAILY HPI Comments Details: 04/07/24--Araseli is a 73-year-old female, accompanied by her daughter, who presents today to the office with the complaints of urinary frequency. She is a Creole speaking female. She is accompanied by her daughter. Her daughter is present during the visit, who interprets for her. She was initially evaluated 12/25/2022 and prescribed on Myrbetriq and vaginal estrogen. Her daughter states that she stopped the medication and stated that it did not help. She has a history of hysterectomy in the past. I have discussed an alternative anticholinergic and we will refer her to sql bi developer for further evaluation of her vaginal complaints. Review of chart: 12/25/2022? She is a Creole speaking female. She is accompanied by her daughter. Her daughter is present during the visit, who interprets for her. She mentions having daytime urinary frequency about every hour and wakes up five times at night to urinate. she also reports intermittent urinary leakage. However, denies hematuria, Denies recent UTI. She had constipation and she is taking OTC Senna with benefit. She reports normal bowel movements at this time. Her daughter states that she does not have any pain in the abdomen.?Her daughter states that she had total hysterectomy few years ago. The patient daughter is not unsure why it is done, but thinks that it may have been done due to premalignant cells on biopsy. I did let them know that one of her BP medication, hydrochlorothiazide, is a diuretic and may be contributing to some of the urine frequency symptoms, but it is important that she takes her medication as prescribed by her PCP. On exam today there is no prolapse. Vaginal atrophy noted. There is no leak with valsalva appreciated. Evaluation today UA-- leukocytes: negative; blood: negative; catheterized urine PVR is 20mL. Myrbetriq 25 mg daily and Vagifem 10 mcg twice a week. Follow up in 2 months. [facility] Medical History Glaucoma Arthritis Hypertension Surgical History History of hysterectomy Family History Father No problems noted. Mother No problems noted. Social History Housing: House Alcohol intake: never Patient Tobacco Use Status: Never used Tobacco e-Cigarette/Vaping Use: Never Used service: No Current occupational status: disabled Current occupational exposures/hazards: No Cognitive needs: No Hearing needs: No Vision needs: Yes (wears glasses) Review of Systems Const All systems reviewed & are unremarkable except as noted in HPI and below Reports no additional complaints Eyes Reports no additional complaints ENT Reports no additional complaints Card Reports no additional complaints Resp Reports no additional complaints GI Reports no additional complaints Reports as per HPI Musc Reports no additional complaints Skin/Breast Reports system reviewed and no additional complaints, except as documented Neuro Reports no additional complaints Psych Reports no additional complaints Endo Reports no additional complaints Benjie/Lymph Reports no additional complaints Aller/Immun Reports no additional complaints Results AMB Urinalysis, Automated UA Leukoctes 70 Mary Jane/uL Last Edit by YAEL Subramanian on 04/07/24 14:23 UA Nitrite Negative Last Edit by YAEL Subramanian on 04/07/24 14:23 UA Urobilinogen 0.2 mg/dL Last Edit by YAEL Subramanian on 04/07/24 14:2 3 UA Protein 0 mg/dL Last Edit by YAEL Subramanian on 04/07/24 14:23 UA pH 6.5 Last Edit by YAEL Subramanian on 04/07/24 14:23 UA Blood 0 Yang/uL Last Edit by YAEL Subramanian on 04/07/24 14:23 UA Specific Olin 1.010 Last Edit by YAEL Subramanian on 04/07/24 14: 23 UA Ketone Negative Last Edit by YAEL Subramanian on 04/07/24 14:23 UA Bilirubin 0 mg/dL Last Edit by Elian Vogel CCM on 04/07/24 14:23 UA Glucose 0 mg/dL Last Edit by YAEL Subramanian on 04/07/24 14:23 Assessment & Plan Assessment & Plan (1) OAB (overactive bladder): Code(s): N32.81 - Overactive bladder Category: Medical (2) Vaginal atrophy: Code(s): N95.2 - Postmenopausal atrophic vaginitis Category: Medical (3) Vaginal pain: Code(s): R10.2 - Pelvic and perineal pain Category: Medical Plan She was initially evaluated 12/25/2022 and prescribed on Myrbetriq and vaginal estrogen. Her daughter states that she stopped the medication and stated that it did not help. She has a history of hysterectomy in the past. I have discussed an alternative anticholinergic and we will refer her to sql bi developer for further evaluation of her vaginal complaints. Orders: Orders AMB Urinalysis Automated Today Z13.9 - Encounter for screening, unspecified Referrals HYDRAULIC MODELING ENGINEER Referral R10.2 - Pelvic and perineal pain Medications: New solifenacin (Vesicare) 10 mg PO DAILY 30 tabs 3RF Patient Instructions: The patient had an opportunity to ask questions regarding treatment plan. The patient expressed understanding and agreement with the above treatment plan. The patient is aware they should contact our office by phone for worsening of their current condition or the appearance of new symptoms. Compliance is encouraged with any medications and followup testing that is ordered. It is a privilege to be allowed the opportunity to participate in the urologic care of your patient. If you have any questions or concerns regarding treatment for the above conditions please do not hesitate to contact me. The office telephone contact is [phone]. This note is constructed in part using voice recognition software. While every effort has been made to ensure accuracy wafer fab operator errors may have been included. Yours sincerely, Lashanda Cowart MD Coding Level of Care Code Est Pt Level 4 (52168) Diagnoses OAB (overactive bladder) N32.81 Vaginal atrophy N95.2 Vaginal pain R10.2
== END 2024-04-07 14:36 | disposition home or self-care (01) ==
LOC: HO.HUSH 13:34
PROVIDERS: PCP Nurse Practitioner Family; Visit Provider Urology
DX: N32.81 Overactive bladder (principal); N95.2 Postmenopausal atrophic vaginitis; R10.2 Pelvic and perineal pain; Z13.9 Encounter for screening, unspecified
CPT/HCPCS: 99214

== ENCOUNTER → 2024-04-07 13:34 | Outpatient (BNVA) | payer MEDICAID, SELFPAY | PROVIDERS: PCP Nurse Practitioner Family; Visit Provider Urology | DX: N32.81 Overactive bladder (principal); N95.2 Postmenopausal atrophic vaginitis; R10.2 Pelvic and perineal pain | CPT/HCPCS: 81003; 99212 ==

== ENCOUNTER 2024-04-18 11:36 | Outpatient (AMB) | payer MEDICAID, SELFPAY ==
--- NOTE | 2024-04-18 11:34 | A.OFFPC_ITS ---
Vital Signs 04/18/24 11:47 Height 5 ft 6 in Weight 266 lb 2 oz BMI 42.9 BP 142/72 H Blood Pressure Location Lt brachial Position Sitting Respiration 16 Pulse 67 Pulse Source Pulse Oximeter Temp 98.1 F Temp Source Oral Pulse Oximetry (%) 100 Oxygen Delivery Method Room Air Intake Visit Reasons: 2 mos HTN Intake Note: patient here for 2 month HTN and DM Carton Folder Required: Yes Carton Folder Language: Chadian Creole Carton Folder Name: patient refused interprestor Accompanied by: Daughter Is last menstrual period known: No Post menopausal: No Patient : No Allergies No Known Allergies Allergy (Verified 04/18/24 11:46) Tobacco use date assessed: 02/15/24 Fall risk assessment: No Falls in past year Last assessed Fall Risk: 04/18/24 Dental Screening Dental Screen Date: 04/18/24 Did you have a dental visit in the last 12 months?: No Did you have a dental problem in the last 6 months where you did not have access to dental care?: No Was dental information given to patient?: Patient has dentist HPI HPI Comments History of Present Illness Details 73-year-old female, accompanied by her julio bautista, presents for hypertension follow-up She admits to taking her medications as prescribed without adverse reactions She reports intermittent bilateral shoulder pain. Celebrex and Voltaren gel have not been effective PFSH Medical History Glaucoma Arthritis Hypertension Surgical History History of hysterectomy Family History Father No problems noted. Mother No problems noted. Social History Housing: House Alcohol intake: never Patient Tobacco Use Status: Never used Tobacco e-Cigarette/Vaping Use: Never Used service: No Current occupational status: disabled Current occupational exposures/hazards: No Cognitive needs: No Hearing needs: No Vision needs: Yes (wears glasses) Questionnaire Thrive Questionnaire Date Thrive assessed: 01/11/24 ROHITH-7 AMB Questionnaire ROHITH-7 Date ROHITH - 7 assessed: 01/11/24 Source: Developed by Drs. Alin Gustafson, Radha Cardona, Andry Slater and colleagues, with an educational yamilex from [employer]. Review of Systems Const Details: Const Denies chills, Denies fatigue, Denies fever(s), Denies headache(s) and Denies weakness ENT Denies dizziness and Denies headache(s) Card Denies chest pain, Denies lightheadedness, Denies dyspnea and Denies other (Palpitations) Resp Denies cough, Denies dyspnea, Denies wheezing and Denies other ( shortness of breath) GI Denies abdominal pain, Denies melena, Denies hematochezia, Denies change in bowel habits, Denies dyspepsia and Denies nausea Denies hematuria and Denies dysuria Musc Reports as per HPI Skin/Breast Denies rash, Denies unusual bruising and Denies wounds Neuro Denies abnormal gait, Denies dizziness, Denies headache(s), Denies memory loss, Denies numbness, Denies Sensory deficit (Neuro), Denies tingling and Denies weakness Psych Denies anxiety, Denies depression, Denies memory loss Endo Denies cold intolerance, Denies fatigue, Denies heat intolerance, Denies polydipsia and Denies polyuria Aller/Immun Denies wheezing Physical exam (Primary Care) Tobacco/Smoking Status: Tobacco use Status Tobacco use date assessed 02/15/24 04/18/24 11:36 Patient Tobacco Use Status Never used Tobacco 04/18/24 11:36 e-Cigarette/Vaping Use Never Used 04/18/24 11:36 Thrive Assessment: Date of Thrive Assessment Date Thrive assessed 01/11/24 04/18/24 11:36 Const Other: General: no acute distress and well developed Nutritional Appearance: well nourished Orientation/consciousness: patient oriented x3 HENMT Head: Yes normocephalic and Yes atraumatic Eyes General: appearance normal, both eyes and all related structures Pupils: Equal, round and reactive pupils present EOM: EOMs intact bilaterally Resp Effort & Inspection: normal respiratory effort Auscultation: clear to auscultation bilaterally Cardio Rate: regular rate Rhythm: regular rhythm Heart sounds: S1 normal heart sound present, S2 normal heart sound present, no gallops, no murmurs and no rubs GI Palpation (GI): No Abdominal aortic bruit present, Soft to palpation, nontender, No hepatosplenomegaly present and No Rebound tenderness present Auscultation: normal bowel sounds General: Yes no CVA tenderness Back/Spine/Pelvis Back: no CVA tenderness Extrem General: Yes normal to inspection, No edema and No calf tenderness Skin General: warm and dry. Normal skin color. Normal skin turgor Neuro General: patient oriented x3, gait normal and no focal neuro deficit Cranial nerves: Yes Equal, round and reactive pupils present Cognition (Neuro): normal cognition Gait exam (Neuro): Normal gait present Sensory Exam: No Sensory deficit (Neuro) Psych Appearance: grossly normal Affect: normal affect Attitude: cooperative Thought process: Normal thought process present Results AMB Hemoglobin A1c AMB Hemoglobin A1c 6.9 % Last Edit by Nina Mims on 04/18/24 12:21 Coding Level of Care Code Est Pt Level 4 (56526) Complex EM visit Add On G2211 Diagnoses Primary hypertension I10 Hypertension type: primary hypertension Type 2 diabetes mellitus E11.9 Arthritis M19.90 Assessment & Plan Assessment & Plan (1) Hypertension: Code(s): I10 - Essential (primary) hypertension Category: Medical Qualifiers: Hypertension type: primary hypertension Qualified Code(s): I10 - Essential (primary) hypertension Plan: Resting blood pressure is 142/72, above new goal of less than 130/80. She is diagnosed with type 2 diabetes today Will increase losartan to 75 mg daily. Advised to take as prescribed. En couraged to continue to take hydrochlorothiazide as prescribed. Low-sodium diet encouraged. Follow-up in 1 month or sooner with symptoms or concerns. Verbalized understanding and agreed with treatment plan. (2) Type 2 diabetes mellitus: Code(s): E11.9 - Type 2 diabetes mellitus without complications Category: Medical Plan: Her recent fasting glucose were elevated. A1c today is 6.9%. Will start metformin 500 mg daily. Advised to take as prescribed and with meal. Instructed on the risks, benefits, and potential adverse reactions of the medications. ADA diet and routine exercise encouraged. Will recheck A1c in 3 months. Verbalized understanding and agreed with treatment plan. (3) Arthritis: Code(s): M19.90 - Unspecified osteoarthritis, unspecified site Category: Medical Plan: She experiences intermittent bilateral shoulder pain. Celebrex and diclofenac cream have not been effective. Will start Tylenol 650 mg every 8 hours as needed in the afternoon and at night. Warm/cool compresses encouraged. Follow- up with new or worsening symptoms. Verbalized understanding and agreed with treatment plan. Orders: Orders AMB Hemoglobin A1c Today Z13.9 - Encounter for screening, unspecified Medications: New losartan Take with Losartan 50 mg daily to equal 75 mg daily 25 mg PO DAILY 90 days 90 tabs 1RF metformin Take with meal 500 mg PO DAILY 90 days 90 tabs 1RF acetaminophen ER (Tylenol 8 Hour) Afternoon and night 650 mg PO Q8H PRN 60 tabs 1RF pain Changed From losartan 50 mg PO DAILY 90 days 90 tabs 1RF To losartan Take with Losartan 25 mg daily to equal 75 mg daily 50 mg PO DAILY 90 days 90 tabs 1RF From celecoxib (Celebrex) 200 mg PO DAILY 90 days 90 caps 1RF To celecoxib (Celebrex) 200 mg PO .AM 90 days 90 caps 1RF
[2024-04-18 11:47] VITALS: BP 142/72; PULSE 67; RESP 16; TEMP 36.7; O2SAT 100; BMI 42.9
== END 2024-04-18 12:34 | disposition home or self-care (01) ==
PROVIDERS: PCP Nurse Practitioner Family; Visit Provider Nurse Practitioner Family
DX: I10 Essential (primary) hypertension (principal); E11.9 Type 2 diabetes mellitus without complications; M19.90 Unspecified osteoarthritis, unspecified site; Z13.9 Encounter for screening, unspecified

== ENCOUNTER → 2024-04-18 11:36 | Outpatient (BNVA) | payer MEDICAID, SELFPAY | PROVIDERS: PCP Nurse Practitioner Family; Visit Provider Nurse Practitioner Family | DX: M25.511 Pain in right shoulder (principal); I10 Essential (primary) hypertension; E11.9 Type 2 diabetes mellitus without complications | CPT/HCPCS: 83036; 99212 ==

== ENCOUNTER 2024-05-20 10:49 | Outpatient (AMB) | payer MEDICAID, SELFPAY ==
--- NOTE | 2024-05-20 10:56 | MHC.PC.OV ---
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 Is last menstrual period known: No Post menopausal: No Patient : No Allergies No Known Allergies Allergy (Verified 05/20/24 11:04) Tobacco use date assessed: 05/20/24 Fall risk assessment: No Falls in past year Last assessed Fall Risk: 05/20/24 Dental Screening Dental Screen Date: 05/20/24 Did you have a dental visit in the last 12 months?: No Did you have a dental problem in the last 6 months where you did not have access to dental care?: No Was dental information given to patient?: Patient has dentist HPI HPI Comments History of Present Illness Details 73-year-old female, accompanied by her daughter, presents for hypertension follow-up She has been making healthy dietary choices She admits to taking her medications as prescribed without adverse reactions No acute symptoms She is followed by [facility], per her daughter [facility] Medical History Glaucoma Arthritis Hypertension Surgical History History of hysterectomy Family History Father No problems noted. Mother No problems noted. Social History Housing: House Alcohol intake: never Patient Tobacco Use Status: Never used Tobacco e-Cigarette/Vaping Use: Never Used service: No Current occupational status: disabled Current occupational exposures/hazards: No Cognitive needs: No Hearing needs: No Vision needs: Yes (wears glasses) Questionnaire Thrive Questionnaire Date Thrive assessed: 04/18/24 I am a: Patient What is your living situation today?: I have a steady place to live Within the past 12 months, did the food you bought not last and you didn't have the money to get more?: Never true Within the past 12 months, did you worry whether your food would run out before you got money to buy more?: Never true Do you have trouble paying for medicines?: No Do you have trouble getting transportation to medical appointments?: No Do you have trouble paying your heating and electricity bill?: No Do you have trouble taking care of your child, family member or friend?: No Do you have trouble with day-to-day activities such as bathing, preparing meals, shopping, managing finances, etc.?: No Are you currently unemployed and looking for a job?: No Are you interested in more education?: No Please select the resources that you would like help with: None Currently or been in a relationship where the following occur: No concerns reported THRIVE Score: 0 ROHITH-7 AMB Questionnaire ROHITH-7 Date ROHITH - 7 assessed: 01/11/24 Source: Developed by Drs. Alin Gustafson, Radha Cardona, Andry Slater and colleagues, with an educational yamilex from [employer]. Review of Systems Const Details: Const Denies chills, Denies fatigue, Denies fever(s), Denies headache(s) and Denies weakness ENT Denies dizziness and Denies headache(s) Card Denies chest pain, Denies lightheadedness, Denies dyspnea and Denies other (Palpitations) Resp Denies cough, Denies dyspnea, Denies wheezing and Denies other ( shortness of breath) GI Denies abdominal pain, Denies melena, Denies hematochezia, Denies change in bowel habits, Denies dyspepsia and Denies nausea Denies hematuria and Denies dysuria Musc Denies abnormal gait, Denies myalgias, Denies arthralgias, Denies numbness and Denies tingling Skin/Breast Denies rash, Denies unusual bruising and Denies wounds Neuro Denies abnormal gait, Denies dizziness, Denies headache(s), Denies memory loss, Denies numbness, Denies Sensory deficit (Neuro), Denies tingling and Denies weakness Psych Denies anxiety, Denies depression, Denies memory loss Endo Denies cold intolerance, Denies fatigue, Denies heat intolerance, Denies polydipsia and Denies polyuria Aller/Immun Denies wheezing Physical exam (Primary Care) Tobacco/Smoking Status: Tobacco use Status Tobacco use date assessed 02/15/24 05/20/24 10:56 Patient Tobacco Use Status Never used Tobacco 05/20/24 10:56 e-Cigarette/Vaping Use Never Used 05/20/24 10:56 Thrive Assessment: Date of Thrive Assessment Date Thrive assessed 04/18/24 05/20/24 10:56 Currently or been in a relationship where the following occur: No concerns reported Const Other: General: no acute distress and well developed Nutritional Appearance: well nourished Orientation/consciousness: patient oriented x3 HENMT Head: Yes normocephalic and Yes atraumatic Eyes General: appearance normal, both eyes and all related structures Pupils: Equal, round and reactive pupils present EOM: EOMs intact bilaterally Resp Effort & Inspection: normal respiratory effort Auscultation: clear to auscultation bilaterally Cardio Rate: regular rate Rhythm: regular rhythm Heart sounds: S1 normal heart sound present, S2 normal heart sound present, no gallops, no murmurs and no rubs GI Palpation (GI): No Abdominal aortic bruit present, Soft to palpation, nontender, No hepatosplenomegaly present and No Rebound tenderness present Auscultation: normal bowel sounds General: Yes no CVA tenderness Back/Spine/Pelvis Back: no CVA tenderness Cervical Spine: cervical ROM normal and No Cervical spine tenderness Thoracic/Lumbar Spine: thoraco-lumbar ROM normal, No pain with thoraco-lumbar ROM, No thoracic spinal tenderness and No lumbar spinal tenderness Extrem General: Yes normal to inspection, No edema and No calf tenderness Skin General: warm and dry. Normal skin color. Normal skin turgor Neuro General: patient oriented x3, gait normal and no focal neuro deficit Cranial nerves: Yes Equal, round and reactive pupils present Cognition (Neuro): normal cognition Gait exam (Neuro): Normal gait present Sensory Exam: No Sensory deficit (Neuro) Psych Appearance: grossly normal Affect: normal affect Attitude: cooperative Thought process: Normal thought process present Coding Level of Care Code Est Pt Level 3 (50455) Diagnoses Primary hypertension I10 Hypertension type: primary hypertension Type 2 diabetes mellitus E11.9 Assessment & Plan Assessment & Plan (1) Hypertension: Code(s): I10 - Essential (primary) hypertension Category: Medical Qualifiers: Hypertension type: primary hypertension Qualified Code(s): I10 - Essential (primary) hypertension Plan: Resting blood pressure is 126/78, within goal of less than 130/80 Continue current treatment regimen Low-sodium diet encouraged Follow-up in 3 months Verbalized understanding and agreed with treatment plan. (2) Type 2 diabetes mellitus: Code(s): E11.9 - Type 2 diabetes mellitus without complications Category: Medical Plan: Referred to [facility] for diabetic retinal exam Will check A1c in 2 months Orders: Referrals Ophthalmology Referral E11.9 - Type 2 diabetes mellitus without complications
[2024-05-20 11:06] VITALS: BP 142/92; PULSE 67; RESP 16; TEMP 36.6; O2SAT 99; BMI 41.8
[2024-05-20 11:23] VITALS: BP 126/78
== END 2024-05-20 11:33 | disposition home or self-care (01) ==
PROVIDERS: PCP Nurse Practitioner Family; Visit Provider Nurse Practitioner Family
DX: I10 Essential (primary) hypertension (principal); E11.9 Type 2 diabetes mellitus without complications

== ENCOUNTER → 2024-05-20 10:49 | Outpatient (BNVA) | payer MEDICAID, SELFPAY | PROVIDERS: PCP Nurse Practitioner Family; Visit Provider Nurse Practitioner Family | DX: I10 Essential (primary) hypertension (principal); E11.9 Type 2 diabetes mellitus without complications | CPT/HCPCS: 99212 ==

== ENCOUNTER 2024-06-30 12:10 | Outpatient (REF) | payer MEDICAID, SELFPAY | END 2024-06-30 12:11 | disposition home or self-care (01) | LOC: HO.MAMMO 12:10 | PROVIDERS: PCP Nurse Practitioner Family; Visit Provider Nurse Practitioner Family | DX: Z12.31 Encounter for screening mammogram for malignant neoplasm of breast (principal) | CPT/HCPCS: 77063; 77067 ==

== ENCOUNTER → 2024-06-30 12:30 | Outpatient (BNV) | payer MEDICAID, SELFPAY | PROVIDERS: PCP Nurse Practitioner Family; Visit Provider Internal Medicine | DX: Z12.31 Encounter for screening mammogram for malignant neoplasm of breast (principal) | CPT/HCPCS: 77063; 77067 ==

== ENCOUNTER 2024-07-25 14:54 | Outpatient (AMB) | payer MEDICAID, SELFPAY ==
--- NOTE | 2024-07-25 15:01 | MHC.PC.OV ---
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 Accompanied by: Daughter Is last menstrual period known: No Post menopausal: No Patient : No Allergies No Known Allergies Allergy (Verified 07/25/24 15:35) Medication List - Last Reconciled 07/25/24 by Segundo Martinez CNP acetaminophen ER (Tylenol 8 Hour) 650 mg PO Q8H PRN celecoxib (Celebrex) 200 mg PO .AM 90 days diclofenac sodium 1% (Voltaren Arthritis Pain) 2 grams topical QID PRN 30 days dorzolamide-timolol (PF) 2-0.5 % 1 drp ophthalmic (eye) BID hydrochlorothiazide 12.5 mg PO DAILY 90 days latanoprost 0.005% 1 drp ophthalmic (eye) QPM 90 days losartan 25 mg PO DAILY 90 days losartan 50 mg PO DAILY 90 days metformin 500 mg PO DAILY 90 days miscellaneous medical supply 1 cane for ambulation solifenacin (Vesicare) 10 mg PO DAILY Tobacco use date assessed: 07/25/24 Fall risk assessment: No Falls in past year Last assessed Fall Risk: 07/25/24 Dental Screening Dental Screen Date: 07/25/24 Did you have a dental visit in the last 12 months?: No Did you have a dental problem in the last 6 months where you did not have access to dental care?: No Was dental information given to patient?: Patient has dentist HPI HPI Comments History of Present Illness Details 74-year-old female, accompanied by her daughter, presents for diabetes and hypertension follow-up. She admits to taking her medications as prescribed without adverse reactions. She reports shortness of breath with moderate exertion/riding stationary bicycle for the past 2 weeks. She also reports intermittent swelling to her lower legs. [facility], LAT[facility] Medical History Glaucoma Arthritis Hypertension Surgical History History of hysterectomy Family History Father No problems noted. Mother No problems noted. Social History Housing: House Alcohol intake: never Patient Tobacco Use Status: Never used Tobacco e-Cigarette/Vaping Use: Never Used service: No Current occupational status: disabled Current occupational exposures/hazards: No Cognitive needs: No Hearing needs: No Vision needs: Yes (wears glasses) Questionnaire PHQ-9 Over the last 2 weeks, how often have you been bothered by any of the following problems? 1. Little interest or pleasure in doing things: not at all 2. Feeling down, depressed, or hopeless: not at all 3. Trouble falling or staying asleep, or sleeping too much: not at all 4. Feeling tired or having little energy: not at all 5. Poor appetite or overeating: not at all 6. Feeling bad about yourself - or that you are a failure or have let yourself or your family down: not at all 7. Trouble concentrating on things, such as reading the newspaper or watching television: not at all 8. Moving or speaking so slowly that other people could have noticed. Or the opposite - being so fidgety or restless that you have been moving around a lot more than usual: not at all 9. Thoughts that you would be better off or of hurting yourself in some way: not at all Total score: 0 Depression Screening Interpretation: Negative Depression Screening Done: Yes 81333 - PHQ-9 Billing: Yes Source: Developed by Drs. Alin Gustafson, Radha Cardona, Andry Slater and colleagues, with an educational yamilex from [employer]. Thrive Questionnaire Date Thrive assessed: 07/25/24 I am a: Patient What is your living situation today?: I have a steady place to live Within the past 12 months, did the food you bought not last and you didn't have the money to get more?: Never true Within the past 12 months, did you worry whether your food would run out before you got money to buy more?: Never true Do you have trouble paying for medicines?: No Do you have trouble getting transportation to medical appointments?: Yes Do you have trouble paying your heating and electricity bill?: No Do you have trouble taking care of your child, family member or friend?: No Do you have trouble with day-to-day activities such as bathing, preparing meals, shopping, managing finances, etc.?: No Are you currently unemployed and looking for a job?: No Are you interested in more education?: No Please select the resources that you would like help with: None Currently or been in a relationship where the following occur: No concerns reported THRIVE Score: 1 AUDIT C Alcohol Use Questionnaire (AUDIT-C) 1. How often do you have a drink containing alcohol?: Never Total Score: 0 ROHITH-7 AMB Questionnaire ROHITH-7 Date ROHITH - 7 assessed: 07/25/24 Feeling nervous, anxious, or on edge: 0 = Not at all Not being able to stop or control worryin = Not at all Worrying too much about different things: 0 = Not at all Trouble relaxin = Not at all Being so restless that it is hard to sit still: 0 = Not at all Becoming easily annoyed or irritable: 0 = Not at all Feeling afraid as if something awful might happen: 0 = Not at all Total ROHITH-7 score (0-4 normal; 5-9 mild; 10-14 moderate; 15-21 severe): 0 Source: Developed by Drs. Alin Gustafson, Radha Cardona, Andry Slater and colleagues, with an educational yamilex from [employer]. ROHITH-7 Assessment Billing ROHITH-7 Assessment Tool: ROHITH-7 Assessment 44870 Review of Systems Const Details: Const Denies chills, Denies fatigue, Denies fever(s), Denies headache(s) and Denies weakness ENT Denies dizziness and Denies headache(s) Card Denies chest pain, Denies lightheadedness, and Denies other (Palpitations) Resp Reports dyspnea on exertion, Denies cough, Denies wheezing and Denies other ( shortness of breath) GI Denies abdominal pain, Denies melena, Denies hematochezia, Denies change in bowel habits, Denies dyspepsia and Denies nausea Denies hematuria and Denies dysuria Musc Denies abnormal gait, Denies myalgias, Denies arthralgias, Denies numbness and Denies tingling Skin/Breast Reports edema to lower legs, Denies rash, Denies unusual bruising and Denies wounds Neuro Denies abnormal gait, Denies dizziness, Denies headache(s), Denies memory loss, Denies numbness, Denies Sensory deficit (Neuro), Denies tingling and Denies weakness Psych Denies anxiety, Denies depression, Denies memory loss Endo Denies cold intolerance, Denies fatigue, Denies heat intolerance, Denies polydipsia and Denies polyuria Aller/Immun Denies wheezing Physical exam (Primary Care) Vital Signs: Last Vital Signs Temp 98.1 F 07/25/24 15:09 Pulse 65 07/25/24 15:09 Resp 16 07/25/24 15:09 BP 175/84 H 07/25/24 15:09 Pulse Ox 100 07/25/24 15:09 Oxygen Delivery Method Room Air 07/25/24 15:09 BMI result Body Mass Index 42.4 Tobacco/Smoking Status: Tobacco use Status Tobacco use date assessed 07/25/24 07/25/24 15:16 Patient Tobacco Use Status Never used Tobacco 07/25/24 15:04 e-Cigarette/Vaping Use Never Used 07/25/24 15:04 PHQ-9: PHQ-9 Score PHQ-9: Total score 0 07/25/24 15:04 Depression Screening Interpretation: Negative Thrive Assessment: Date of Thrive Assessment Date Thrive assessed 07/25/24 07/25/24 15:04 Currently or been in a relationship where the following occur: No concerns reported Const Other: General: no acute distress and well developed Nutritional Appearance: well nourished Orientation/consciousness: patient oriented x3 HENMT Head: Yes normocephalic and Yes atraumatic Eyes General: appearance normal, both eyes and all related structures Pupils: Equal, round and reactive pupils present EOM: EOMs intact bilaterally Resp Effort & Inspection: normal respiratory effort Auscultation: clear to auscultation bilaterally Cardio Rate: regular rate Rhythm: regular rhythm Heart sounds: S1 normal heart sound present, S2 normal heart sound present, no gallops, no murmurs and no rubs GI Palpation (GI): No Abdominal aortic bruit present, Soft to palpation, nontender, No hepatosplenomegaly present and No Rebound tenderness present Auscultation: normal bowel sounds General: Yes no CVA tenderness Back/Spine/Pelvis Back: no CVA tenderness Cervical Spine: cervical ROM normal and No Cervical spine tenderness Thoracic/Lumbar Spine: thoraco-lumbar ROM normal, No pain with thoraco-lumbar ROM, No thoracic spinal tenderness and No lumbar spinal tenderness Extrem General: Yes normal to inspection, No calf tenderness, +1 edema to bilateral lower leg/ankle Skin General: warm and dry. Normal skin color. Normal skin turgor Neuro General: patient oriented x3, gait normal and no focal neuro deficit Cranial nerves: Yes Equal, round and reactive pupils present Cognition (Neuro): normal cognition Gait exam (Neuro): Normal gait present Sensory Exam: No Sensory deficit (Neuro) Psych Appearance: grossly normal Affect: normal affect Attitude: cooperative Thought process: Normal thought process present Results AMB Hemoglobin A1c AMB Hemoglobin A1c 6.1 % Last Edit by Nina Mims on 07/25/24 15:36 Coding Level of Care Code Est Pt Level 4 (78735) Diagnoses Primary hypertension I10 Hypertension type: primary hypertension Type 2 diabetes mellitus E11.9 Dyspnea on exertion R06.09 Additional Codes ROHITH-7 Assessment Billing - ROHITH-7 Assessment Tool: ROHITH-7 Assessment 82203 ([id number]) PHQ-9 - 15109 - PHQ-9 Billing: Yes ([id number]) Assessment & Plan Assessment & Plan (1) Hypertension: Code(s): I10 - Essential (primary) hypertension Category: Medical Qualifiers: Hypertension type: primary hypertension Qualified Code(s): I10 - Essential (primary) hypertension Plan: Resting blood pressure is 146/84, above goal of less than 130/80. Will increase hydrochlorothiazide to 25 mg daily; advised to take as prescribed. Low-sodium diet encouraged. Follow-up in 1 month or sooner with symptoms or concerns. Verbalized understanding and agreed with treatment plan. (2) Type 2 diabetes mellitus: Code(s): E11.9 - Type 2 diabetes mellitus without complications Category: Medical Plan: A1c today is 6.1%, within goal of less than 7.0%. Previous A1c was 6.9%. Continue current treatment regimen. Will recheck A1c in 3 months. Verbalized understanding and agreed with the plan. (3) Dyspnea on exertion: Code(s): R06.09 - Other forms of dyspnea Category: Medical Plan: Dyspnea on exertion for the past 2 weeks, and intermittent lower legs swelling. No chest pain or wheezing. Lung sounds clear bilaterally. +1 edema to bilateral lower leg/ankle Will check BMP and BNP to rule out CHF. Will increase hydrochlorothiazide to increase fluid excretion. Will check lab results and make changes as needed. Follow-up with worsening or new symptoms. Verbalized understanding and agreed with treatment plan. Orders: Orders AMB Hemoglobin A1c Today Z13.9 - Encounter for screening, unspecified Basic Metabolic Panel Today R06.09 - Other forms of dyspnea B Type Natriuretic Peptide Today R06.09 - Other forms of dyspnea Medications: New hydrochlorothiazide 25 mg PO DAILY 90 days 90 tabs 1RF Discontinued hydrochlorothiazide Discontinued Reason: Doctor's Order 12.5 mg PO DAILY 90 days 90 caps 1RF
[2024-07-25 15:09] VITALS: BP 175/84; PULSE 65; RESP 16; TEMP 36.7; O2SAT 100; BMI 42.4
[2024-07-25 15:39] VITALS: BP 146/84
== END 2024-07-25 15:52 | disposition home or self-care (01) ==
PROVIDERS: PCP Nurse Practitioner Family; Visit Provider Nurse Practitioner Family
DX: I10 Essential (primary) hypertension (principal); E11.9 Type 2 diabetes mellitus without complications; R06.09 Other forms of dyspnea; Z13.9 Encounter for screening, unspecified

== ENCOUNTER → 2024-07-25 14:54 | Outpatient (BNVA) | payer MEDICAID, SELFPAY | PROVIDERS: PCP Nurse Practitioner Family; Visit Provider Nurse Practitioner Family | DX: I10 Essential (primary) hypertension (principal); E11.9 Type 2 diabetes mellitus without complications; R06.09 Other forms of dyspnea | CPT/HCPCS: 83036; 96127; 99212 ==

== ENCOUNTER 2024-07-27 11:12 | Outpatient (REF) | payer MEDICAID, SELFPAY ==
[2024-07-27 14:38] LABS: Anion Gap 11 (12-20); Blood Urea Nitrogen 28 mg/dL (9-16); Calcium 9.9 mg/dL (8.4-10.2); Carbon Dioxide 29 mmol/L (22-29); Chloride 108 mmol/L (96-108); Estimated Glomerular Filt Rate 37; Glucose Random 136 mg/dL (60-115); Sodium 144 mmol/L (135-145)
[2024-07-27 14:58] LABS: B Type Natriuretic Peptide 100 pg/mL (<100)
== END 2024-07-27 11:13 | disposition home or self-care (01) ==
LOC: HO.WFDLDS 11:12
PROVIDERS: Visit Provider Nurse Practitioner Family
DX: R06.09 Other forms of dyspnea (principal)
CPT/HCPCS: 36415; 80048; 83880

== ENCOUNTER 2024-08-03 15:57 | Outpatient (AMB) | payer MEDICAID, SELFPAY ==
--- NOTE | 2024-08-03 15:58 | A.OFFVIS_ITS ---
Intake Visit Reasons: 9w/Med Review Intake Note: Patient is present via telehealth for 9 week med review Urology Medication:Solifenacin Antibiotic Allergy:NONE Blood Thinner:NONE Manufacturing Engineering Manager Required: Yes Manufacturing Engineering Manager Services: Manufacturing Engineering Manager Present Allergies No Known Allergies Allergy (Verified 08/03/24 15:59) HPI Comments Details: 08/03/24--Araseli is a 74-year-old female presenting with follow-up concerns related to the management of overactive bladder and urinary incontinence. Previous evaluation on April 07, 2024, led to the prescription of Vesicare for her overactive bladder and vaginal estrogen cream for vaginal atrophy, the latter which is currently discontinued. She has reported improvement with Vesicare, though still experiences increased urinary frequency mainly due to Hydrochlorothiazide used for her hypertension. She no longer requires pads frequently. Urinary Symptoms Review - Increased urinary frequency attributed to Hydrochlorothiazide - Ongoing use of Vesicare with significant symptom improvement - Lack of pad usage due to improved urinary incontinence - Discontinued use of vaginal estrogen cream - Refill of Solifenacin therapy planned 04/07/24--Araseli is a 73-year-old female, accompanied by her daughter, who presents today to the office with the complaints of urinary frequency. She is a Creole speaking female. She is accompanied by her daughter. Her daughter is present during the visit, who interprets for her. She was initially evaluated 12/25/2022 and prescribed on Myrbetriq and vaginal estrogen. Her daughter states that she stopped the medication and stated that it did not help. She has a history of hysterectomy in the past. I have discussed an alternative anticholinergic and we will refer her to video editor for further evaluation of her vaginal complaints. 12/25/2022? She is a Creole speaking female. She is accompanied by her daughter. Her daughter is present during the visit, who interprets for her. She mentions having daytime urinary frequency about every hour and wakes up five times at night to urinate. she also reports intermittent urinary leakage. However, denies hematuria, Denies recent UTI. She had constipation and she is taking OTC Senna with benefit. She reports normal bowel movements at this time. Her daughter states that she does not have any pain in the abdomen.?Her daughter states that she had total hysterectomy few years ago. The patient daughter is not unsure why it is done, but thinks that it may have been done due to premalignant cells on biopsy. I did let them know that one of her BP medication, hydrochlorothiazide, is a diuretic and may be contributing to some of the urine frequency symptoms, but it is important that she takes her medication as prescribed by her PCP. On exam today there is no prolapse. Vaginal atrophy noted. There is no leak with valsalva appreciated. Evaluation today UA-- leukocytes: negative; blood: negative; catheterized urine PVR is 20mL. Myrbetriq 25 mg daily and Vagifem 10 mcg twice a week. Follow up in 2 months. [facility] Medical History Glaucoma Arthritis Hypertension Surgical History History of hysterectomy Family History Father No problems noted. Mother No problems noted. Social History Housing: House Alcohol intake: never Patient Tobacco Use Status: Never used Tobacco e-Cigarette/Vaping Use: Never Used service: No Current occupational status: disabled Current occupational exposures/hazards: No Cognitive needs: No Hearing needs: No Vision needs: Yes (wears glasses) Review of Systems Const All systems reviewed & are unremarkable except as noted in HPI and below Reports no additional complaints Eyes Reports no additional complaints ENT Reports no additional complaints Card Reports no additional complaints Resp Reports no additional complaints GI Reports no additional complaints Reports as per HPI Musc Reports no additional complaints Skin/Breast Reports system reviewed and no additional complaints, except as documented Neuro Reports no additional complaints Psych Reports no additional complaints Endo Reports no additional complaints Benjie/Lymph Reports no additional complaints Aller/Immun Reports no additional complaints Telehealth Telehealth Telehealth Platform: [facility] Location of provider rendering services: practice address Location of patient: address on file Patient Identification confirmed using: Name, : Yes Telehealth method: voice only Patient verbally consented to treatment: Yes Patient verbally consented to billing insurance company: Yes Patient informed of any privacy concerns related to visit: Yes Minutes spent on Phone/Video with Pt.: 13 Assessment & Plan Assessment & Plan (1) OAB (overactive bladder): Code(s): N32.81 - Overactive bladder Category: Medical (2) Vaginal atrophy: Code(s): N95.2 - Postmenopausal atrophic vaginitis Category: Medical Plan She was initially evaluated 12/25/2022 and prescribed on Myrbetriq and vaginal estrogen. Her daughter states that she stopped the medication and stated that it did not help. She has a history of hysterectomy in the past. I have discussed an alternative anticholinergic and we will refer her to video editor for further evaluation of her vaginal complaints. Discussion Notes During this telehealth visit, the patient?s symptom improvement with the use of Vesicare was discussed, alongside the frequency concerns related to Hydrochlorothiazide. Given the lack of refills on Solifenacin, a prescription for a 90-day supply was confirmed, recognizing its past effectiveness in managing urge incontinence symptoms. The rationale for discontinuing vaginal estrogen was acknowledged without current contraindication. A subsequent in- office visit will occur in 9 months for comprehensive evaluation, including urine testing to ensure ongoing management is optimized. Follow-up to reassess symptoms and therapeutic efficacy was consented by the patient?s daughter. Medications: Refilled solifenacin (Vesicare) 10 mg PO DAILY 90 tabs 3RF Patient Instructions: Patient Instructions - Continue taking Solifenacin as prescribed with new 90-day refill. - Monitor urinary symptoms and inform provider if frequency or urgency worsens. - Return to the office in 9 months for follow-up evaluation and urine testing. - Reach out sooner if experiencing any new or concerning changes in symptoms or if complications arise. The patient had an opportunity to ask questions regarding treatment plan. The patient expressed understanding and agreement with the above treatment plan. The patient is aware they should contact our office by phone for worsening of their current condition or the appearance of new symptoms. Compliance is encouraged with any medications and followup testing that is ordered. It is a privilege to be allowed the opportunity to participate in the urologic care of your patient. If you have any questions or concerns regarding treatment for the above conditions please do not hesitate to contact me. The office telephone contact is [phone]. This note is constructed in part using voice recognition software. While every effort has been made to ensure accuracy border machine operator errors may have been included. Yours sincerely, Lashanda Cowart MD Scribe Plan - Not visible on output: Patient was informed and verbally consented to the use of an ambient scribe for clinic note documentation during this visit. Coding Level of Care Code Tele Est Pt Level 3 (76637) Diagnoses OAB (overactive bladder) N32.81 Vaginal atrophy N95.2
== END 2024-08-03 16:38 | disposition home or self-care (01) ==
LOC: HO.HUSH 15:57
PROVIDERS: PCP Nurse Practitioner Family; Visit Provider Urology
DX: N32.81 Overactive bladder (principal); N95.2 Postmenopausal atrophic vaginitis
CPT/HCPCS: 99213

== ENCOUNTER → 2024-08-03 15:57 | Outpatient (BNVA) | payer MEDICAID, SELFPAY | PROVIDERS: PCP Nurse Practitioner Family; Visit Provider Urology ==

== ENCOUNTER 2024-08-24 14:47 | Outpatient (AMB) | payer MEDICAID, SELFPAY ==
--- NOTE | 2024-08-24 14:50 | A.OFFPC_ITS ---
Vital Signs 08/24/24 14:58 08/24/24 15:22 Height 5 ft 6 in Weight 258 lb BMI 41.6 BP 155/74 H 134/72 Blood Pressure Location Rt brachial Lt brachial Position Sitting Sitting Respiration 16 Pulse 66 Pulse Source Pulse Oximeter Temp 97.7 F Temp Source Oral Pulse Oximetry (%) 99 Oxygen Delivery Method Room Air Intake Visit Reasons: 1MOS HTN Intake Note: patient here for follow up on HTN Firearms Inspector Required: No Accompanied by: Daughter Is last menstrual period known: No Post menopausal: No Patient : No Allergies No Known Allergies Allergy (Verified 08/24/24 15:17) Medication List - Last Reconciled 08/24/24 by Segundo Martinez CNP acetaminophen ER (Tylenol 8 Hour) 650 mg PO Q8H PRN celecoxib (Celebrex) 200 mg PO .AM 90 days diclofenac sodium 1% (Voltaren Arthritis Pain) 2 grams topical QID PRN 30 days dorzolamide-timolol (PF) 2-0.5 % 1 drp ophthalmic (eye) BID hydrochlorothiazide 25 mg PO DAILY 90 days latanoprost 0.005% 1 drp ophthalmic (eye) QPM 90 days losartan 100 mg PO DAILY losartan 25 mg PO DAILY 90 days metformin 500 mg PO DAILY 90 days miscellaneous medical supply 1 cane for ambulation solifenacin (Vesicare) 10 mg PO DAILY Tobacco use date assessed: 08/24/24 Fall risk assessment: No Falls in past year Last assessed Fall Risk: 08/24/24 Dental Screening Dental Screen Date: 08/24/24 Did you have a dental visit in the last 12 months?: Yes Did you have a dental problem in the last 6 months where you did not have access to dental care?: No Was dental information given to patient?: Patient has dentist HPI HPI Comments History of Present Illness Details 74-year-old female, accompanied by her julio bautista, presents for hypertens ion follow-up. She admits to taking her medications as prescribed without adverse reactions. She has been making healthy lifestyle changes, including low-sodium diet. She offers no complaints and denies acute symptoms at this time. [facility] Medical History Glaucoma Arthritis Hypertension Surgical History History of hysterectomy Family History Father No problems noted. Mother No problems noted. Social History Housing: House Alcohol intake: never Patient Tobacco Use Status: Never used Tobacco e-Cigarette/Vaping Use: Never Used service: No Current occupational status: disabled Current occupational exposures/hazards: No Cognitive needs: No Hearing needs: No Vision needs: Yes (wears glasses) Questionnaire Thrive Questionnaire Date Thrive assessed: 07/25/24 I am a: Patient What is your living situation today?: I have a steady place to live Within the past 12 months, did the food you bought not last and you didn't have the money to get more?: Never true Within the past 12 months, did you worry whether your food would run out before you got money to buy more?: Never true Do you have trouble paying for medicines?: No Do you have trouble getting transportation to medical appointments?: Yes Do you have trouble paying your heating and electricity bill?: No Do you have trouble taking care of your child, family member or friend?: No Do you have trouble with day-to-day activities such as bathing, preparing meals, shopping, managing finances, etc.?: No Are you currently unemployed and looking for a job?: No Are you interested in more education?: No Please select the resources that you would like help with: None Currently or been in a relationship where the following occur: No concerns reported THRIVE Score: 1 AUDIT C Alcohol Use Questionnaire (AUDIT-C) 2. How many drinks containing alcohol do you have on a typical day when you are drinking?: 1 or 2 3. How often do you have six or more drinks on one occasion?: Never Total Score: 0 ROHITH-7 AMB Questionnaire ROHITH-7 Date ROHITH - 7 assessed: 07/25/24 Source: Developed by Drs. Alin Gustafson, Radha Cardona, Andry Slater and colleagues, with an educational yamilex from [employer]. Review of Systems Const Details: Const Denies chills, Denies fatigue, Denies fever(s), Denies headache(s) and Denies weakness ENT Denies dizziness and Denies headache(s) Card Denies chest pain, Denies lightheadedness, Denies dyspnea and Denies other (Palpitations) Resp Denies cough, Denies dyspnea, Denies wheezing and Denies other ( shortness of breath) GI Denies abdominal pain, Denies melena, Denies hematochezia, Denies change in bowel habits, Denies dyspepsia and Denies nausea Denies hematuria and Denies dysuria Musc Denies abnormal gait, Denies myalgias, Denies arthralgias, Denies numbness and Denies tingling Skin/Breast Denies rash, Denies unusual bruising and Denies wounds Neuro Denies abnormal gait, Denies dizziness, Denies headache(s), Denies memory loss, Denies numbness, Denies Sensory deficit (Neuro), Denies tingling and Denies weakness Psych Denies anxiety, Denies depression, Denies memory loss Endo Denies cold intolerance, Denies fatigue, Denies heat intolerance, Denies polydipsia and Denies polyuria Aller/Immun Denies wheezing Physical exam (Primary Care) Vital Signs: Last Vital Signs Temp 97.7 F 08/24/24 14:58 Pulse 66 08/24/24 14:58 Resp 16 08/24/24 14:58 BP 134/72 08/24/24 15:22 Pulse Ox 99 08/24/24 14:58 Oxygen Delivery Method Room Air 08/24/24 14:58 BMI result Body Mass Index 41.6 Tobacco/Smoking Status: Tobacco use Status Tobacco use date assessed 08/24/24 08/24/24 14:55 Patient Tobacco Use Status Never used Tobacco 08/24/24 14:53 e-Cigarette/Vaping Use Never Used 08/24/24 14:53 Thrive Assessment: Date of Thrive Assessment Date Thrive assessed 07/25/24 08/24/24 14:53 Currently or been in a relationship where the following occur: No concerns reported Const Other: General: no acute distress and well developed Nutritional Appearance: well nourished Orientation/consciousness: patient oriented x3 HENMT Head: Yes normocephalic and Yes atraumatic Eyes General: appearance normal, both eyes and all related structures Pupils: Equal, round and reactive pupils present EOM: EOMs intact bilaterally Resp Effort & Inspection: normal respiratory effort Auscultation: clear to auscultation bilaterally Cardio Rate: regular rate Rhythm: regular rhythm Heart sounds: S1 normal heart sound present, S2 normal heart sound present, no gallops, no murmurs and no rubs GI Palpation (GI): No Abdominal aortic bruit present, Soft to palpation, nontender, No hepatosplenomegaly present and No Rebound tenderness present Auscultation: normal bowel sounds General: Yes no CVA tenderness Back/Spine/Pelvis Back: no CVA tenderness Cervical Spine: cervical ROM normal and No Cervical spine tenderness Thoracic/Lumbar Spine: thoraco-lumbar ROM normal, No pain with thoraco-lumbar ROM, No thoracic spinal tenderness and No lumbar spinal tenderness Extrem General: Yes normal to inspection, No edema and No calf tenderness Skin General: warm and dry. Normal skin color. Normal skin turgor Neuro General: patient oriented x3, gait normal and no focal neuro deficit Cranial nerves: Yes Equal, round and reactive pupils present Cognition (Neuro): normal cognition Gait exam (Neuro): Normal gait present Sensory Exam: No Sensory deficit (Neuro) Psych Appearance: grossly normal Affect: normal affect Attitude: cooperative Thought process: Normal thought process present Coding Level of Care Code Est Pt Level 3 (86226) Diagnoses Primary hypertension I10 Hypertension type: primary hypertension Assessment & Plan Assessment & Plan (1) Hypertension: Code(s): I10 - Essential (primary) hypertension Category: Medical Qualifiers: Hypertension type: primary hypertension Qualified Code(s): I10 - Essential (primary) hypertension Plan: Resting blood pressure is 134/72, slightly above goal of less than 130/80. Continue current treatment regimen. Follow-up in 2 months for hypertension and diabetes. Return sooner with symptoms or concerns. Verbalized understanding and agreed with treatment plan.
[2024-08-24 14:58] VITALS: BP 155/74; PULSE 66; RESP 16; TEMP 36.5; O2SAT 99; BMI 41.6
[2024-08-24 15:22] VITALS: BP 134/72
== END 2024-08-24 15:28 | disposition home or self-care (01) ==
LOC: HO.HMCFM 14:48
PROVIDERS: PCP Nurse Practitioner Family; Visit Provider Nurse Practitioner Family
DX: I10 Essential (primary) hypertension (principal)

== ENCOUNTER → 2024-08-24 14:47 | Outpatient (BNVA) | payer MEDICAID, SELFPAY | PROVIDERS: PCP Nurse Practitioner Family; Visit Provider Nurse Practitioner Family | DX: I10 Essential (primary) hypertension (principal) | CPT/HCPCS: 99212 ==

== ENCOUNTER 2024-08-31 11:40 | Outpatient (AMB) | payer MEDICAID, SELFPAY ==
--- NOTE | 2024-08-31 11:45 | A.OFFVIS_ITS ---
Vital Signs 08/31/24 11:51 Height 5 ft 6 in Weight 256 lb BMI 41.3 BP 130/76 Intake Visit Reasons: pelvic pain/Internal Referral Group Home Worker Required: Yes Group Home Worker Language: Sammarinese Creole Group Home Worker Services: Group Home Worker Present (in person) Group Home Worker Name: Autumn Buckner Information Interpreted: non-clinical & clinical Raw Material Planner: Raw Material Planner Present (Ana ALDRICH) Accompanied by: Daughter Allergies No Known Allergies Allergy (Verified 08/31/24 11:53) HPI Comments Details: Presenting complaining of three-months history of pelvic pain that has results recently, associated with urinary frequency, no vaginal bleeding or discharge no other symptoms. The patient was seen by urology was prescribed VESIcare her pain has resolved since then [facility] Medical History (Updated 08/31/24 @ 12:12 by Olivier Vargas MD) Glaucoma Arthritis Hypertension Surgical History (Updated 08/31/24 @ 12:15 by Olivier Vargas MD) History of hysterectomy Family History Father No problems noted. Mother No problems noted. Social History Housing: House Alcohol intake: never Patient Tobacco Use Status: Never used Tobacco e-Cigarette/Vaping Use: Never Used service: No Current occupational status: disabled Current occupational exposures/hazards: No Cognitive needs: No Hearing needs: No Vision needs: Yes (wears glasses) Review of Systems Const All systems reviewed & are unremarkable except as noted in HPI and below Card Reports as per HPI and Reports no additional complaints Resp Reports as per HPI and Reports no additional complaints GI Reports as per HPI and Reports no additional complaints Reports as per HPI Physical Exam Vital Signs: Last Vital Signs BP 130/76 08/31/24 11:51 BMI result Body Mass Index 41.3 Const General: cooperative, healthy appearing and comfortable General: Yes bladder normal to palpation External Female Exam: No lesion Speculum Exam - Vagina: normal appearance of the vagina, normal vaginal discharge and not erythematous Speculum Exam - Cervix: Cervix absent Bimanual exam- vagina & uterus: bladder normal to palpation and uterus absent Bimanual Exam- Adnexa, other: Other (No masses detected) Results AMB Urinalysis Dipstick UR Leukocytes Negative Last Edit by Ana Roy CMA on 08/31/24 12:00 UR Nitrite Negative Last Edit by Anazahira Roy, CORRECTIONAL MAINTENANCE TECHNICIAN on 08/31/24 12:00 UR Urobilinogen Normal Last Edit by Ana Roy, CORRECTIONAL MAINTENANCE TECHNICIAN on 08/31/24 12:00 UR Protein 100 Last Edit by Ana Roy, CORRECTIONAL MAINTENANCE TECHNICIAN on 08/31/24 12:00 UR Ph 6.5 Last Edit by Ana Roy, CORRECTIONAL MAINTENANCE TECHNICIAN on 08/31/24 12:00 UR Blood Small Last Edit by Ana Roy, CORRECTIONAL MAINTENANCE TECHNICIAN on 08/31/24 12:00 UR Specific [place] 1.010 Last Edit by Ana Roy, CORRECTIONAL MAINTENANCE TECHNICIAN on 08/31/24 12:00 UR Ketone Negative Last Edit by Ana Roy, CORRECTIONAL MAINTENANCE TECHNICIAN on 08/31/24 12:00 UR Bilirubin Negative Last Edit by Ana Roy, CORRECTIONAL MAINTENANCE TECHNICIAN on 08/31/24 12:00 UR Glucose Negative Last Edit by Ana Roy, CORRECTIONAL MAINTENANCE TECHNICIAN on 08/31/24 12:00 Results Reviewed Results Reviewed: Laboratory Last Values Urine pH (Clinic) 6.5 08/31/24 11:59 Specific [place] (Clinic) 1.010 08/31/24 11:59 Ur Protein (Clinic) 100 08/31/24 11:59 Ur Ketones (Clinic) Negative 08/31/24 11:59 Urine Blood (Clinic) Small 08/31/24 11:59 Urine Nitrite Negative 08/31/24 11:59 Urine Bilirubin (Clinic) Negative 08/31/24 11:59 Urobilinogen (Clinic) Normal 08/31/24 11:59 Leukocyte Esterase (Clinic) Negative 08/31/24 11:59 Urine Glucose (Clinic) Negative 08/31/24 11:59 Assessment & Plan Assessment & Plan (1) Pelvic pain: Code(s): R10.2 - Pelvic and perineal pain Category: Medical Plan: Urine dip showed microscopic hematuria. Co testing done, the patient's daughter was asked to bring medical record regarding hysterectomy BSO performed in [facility] 9 years. If the indication for hysterectomy BSO was done for severe cervical dysplasia recommended co testing Q 3 years a total of 25 years from the date of hysterectomy. Pelvic ultrasound ordered. Instructions given the patient to schedule 2 week ultrasound follow-up appointment. (2) Microscopic hematuria: Code(s): R31.29 - Other microscopic hematuria Category: Medical Plan: Urine dip showed microscopic hematuria, urine culture sent. Will repeat urine dip in 2 weeks. Discussed with the patient the possible causes of microscopic hematuria including but not limited to: interstitial cystitis, polyps, stones, masses, urethral inflammatory processes and others. If Urine Culture is negative and repeat urine dip in 2 weeks shows persistent microscopic hematuria, will proceed with CT abdomen/pelvis and urology referral. Instructions given the patient to schedule a 2 week urine dip follow-up appointment. All questions answered and the patient verbalized understanding. Orders: Orders AMB Urinalysis Dipstick Today R31.29 - Other microscopic hematuria Urine Culture Today R31.29 - Other microscopic hematuria US pelvic and transvaginal Today R10.2 - Pelvic and perineal pain Coding Level of Care Code New Pt Level 3 (36860) Diagnoses Pelvic pain R10.2 Microscopic hematuria R31.29
[2024-08-31 11:51] VITALS: BP 130/76; BMI 41.3
== END 2024-08-31 12:11 | disposition home or self-care (01) ==
LOC: HO.HWS 11:40
PROVIDERS: PCP Nurse Practitioner Family; Visit Provider Obstetrics & Gynecology
DX: R10.2 Pelvic and perineal pain (principal); R31.29 Other microscopic hematuria
CPT/HCPCS: 99203

== ENCOUNTER 2024-08-31 11:40 | Outpatient (REF) | payer MEDICAID, SELFPAY ==
[2024-09-07 15:08] LABS: HPV Genotype 16 Negative (Negative); HPV Genotype 18 Negative (Negative); HPV High Risk Negative (Negative)
== END 2024-08-31 11:41 | disposition home or self-care (01) ==
LOC: HO.LNP 11:40
PROVIDERS: PCP Nurse Practitioner Family; Visit Provider Obstetrics & Gynecology
DX: Z12.4 Encounter for screening for malignant neoplasm of cervix (principal); Z11.51 Encounter for screening for human papillomavirus (HPV); R10.2 Pelvic and perineal pain; R31.29 Other microscopic hematuria
CPT/HCPCS: 81002; 87086; 87626; 88175; 99202

== ENCOUNTER 2024-09-21 14:09 | Outpatient (REF) | payer MEDICAID, SELFPAY | END 2024-09-21 14:10 | disposition home or self-care (01) | LOC: HO.LNP 14:09 | PROVIDERS: Visit Provider Nurse Practitioner Family | DX: Z20.818 Contact with and (suspected) exposure to other bacterial communicable diseases (principal) | CPT/HCPCS: 87338 ==

== ENCOUNTER 2024-09-23 15:21 | Outpatient (REF) | payer MEDICAID, SELFPAY | END 2024-09-23 15:22 | disposition home or self-care (01) | LOC: HO.US 15:21 | PROVIDERS: PCP Nurse Practitioner Family; Visit Provider Obstetrics & Gynecology | DX: R10.2 Pelvic and perineal pain (principal) | CPT/HCPCS: 76830; 76856 ==

== ENCOUNTER → 2024-09-23 15:24 | Outpatient (BNV) | payer MEDICAID, SELFPAY | PROVIDERS: PCP Nurse Practitioner Family; Visit Provider Radiology Diagnostic Radiology | DX: R10.2 Pelvic and perineal pain (principal) | CPT/HCPCS: 76856; 78630 ==

== ENCOUNTER 2024-09-27 12:26 | Outpatient (AMB) | payer MEDICAID, SELFPAY ==
--- NOTE | 2024-09-27 12:31 | MHC.OFFVIS ---
Intake Visit Reasons: ultrasound results / urine dip Ct Scan Technologist Required: Yes Ct Scan Technologist Language: Yaya Rausch Ct Scan Technologist Services: Ct Scan Technologist Present (in person) Ct Scan Technologist Name: Autumn Buckner Information Interpreted: clinical only Script Manager: Script Manager Present (Tiffanie) Accompanied by: Daughter Allergies No Known Allergies Allergy (Verified 09/27/24 12:34) HPI Comments Details: Presenting for ultrasound follow-up and repeat urine dip. Ultrasound done but not read yet, unofficial reading shows absence of the uterus and or of ovaries with no evidence of any pelvic mass Repeat urine dip today was negative for microscopic hematuria, urine culture was negative [facility] Medical History Glaucoma Arthritis Hypertension Surgical History History of hysterectomy Family History Father No problems noted. Mother No problems noted. Social History Housing: House Alcohol intake: never Patient Tobacco Use Status: Never used Tobacco e-Cigarette/Vaping Use: Never Used service: No Current occupational status: disabled Current occupational exposures/hazards: No Cognitive needs: No Hearing needs: No Vision needs: Yes (wears glasses) Review of Systems Const All systems reviewed & are unremarkable except as noted in HPI and below Reports as per HPI and Reports no additional complaints GI Reports no additional complaints Reports no additional complaints Assessment & Plan Assessment & Plan (1) Pelvic pain: Code(s): R10.2 - Pelvic and perineal pain Category: Medical Plan: Discussed with the patient the results of the workup done including negative urine dip and pelvic ultrasound (unofficial reading). Differential diagnosis of furnace combination analyst causes that have not be ruled out yet include but not limited to pelvic adhesions , or other causes . Recommended for the patient to see her PCP for further workup for non furnace combination analyst causes; if the all the results are negative and the patient's pelvic pain is persistent, instructions given to patient to call back for further testing. Meanwhile, instructions were given the patient to go to emergency room or call in case of fever above 100.4, heavy vaginal bleeding, persistence or worsening of her pelvic pain. All questions answered, the patient verbalized understanding. (2) Microscopic hematuria: Code(s): R31.29 - Other microscopic hematuria Category: Medical Plan: Repeat urine dip showed no evidence of microscopic hematuria, the patient was reassured. Coding Level of Care Code Est Pt Level 3 (60750) Diagnoses Pelvic pain R10.2 Microscopic hematuria R31.29
== END 2024-09-27 12:57 | disposition home or self-care (01) ==
LOC: HO.HWS 12:27
PROVIDERS: PCP Nurse Practitioner Family; Visit Provider Obstetrics & Gynecology
DX: R10.2 Pelvic and perineal pain (principal); R31.29 Other microscopic hematuria
CPT/HCPCS: 99213

== ENCOUNTER → 2024-09-27 12:26 | Outpatient (BNVA) | payer MEDICAID, SELFPAY | PROVIDERS: PCP Nurse Practitioner Family; Visit Provider Obstetrics & Gynecology | DX: R10.2 Pelvic and perineal pain (principal); R31.29 Other microscopic hematuria | CPT/HCPCS: 99212 ==

== ENCOUNTER 2024-10-25 12:25 | Outpatient (AMB) | payer MEDICAID, SELFPAY ==
--- NOTE | 2024-10-25 12:28 | MHC.PC.OV ---
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: No Is last menstrual period known: No Post menopausal: No Patient : No Allergies No Known Allergies Allergy (Verified 10/25/24 12:36) Tobacco use date assessed: 10/25/24 Fall risk assessment: No Falls in past year Last assessed Fall Risk: 10/25/24 Dental Screening Dental Screen Date: 10/25/24 Did you have a dental visit in the last 12 months?: Yes Did you have a dental problem in the last 6 months where you did not have access to dental care?: No Was dental information given to patient?: Patient has dentist HPI HPI Comments History of Present Illness Details 74-year-old Creole speaking female, accompanied by her daughter, presents for hypertension follow-up. She admits to taking her medications as prescribed without adverse reactions. She has been making healthy lifestyle changes, including low-sodium diet. She reports intermittent sharp pain from her entire right arm - shoulder to the hand for the past several months. She denies tingling or numbness. No acute symptoms at this time. She denies fall, injury, trauma. [facility] Medical History Glaucoma Arthritis Hypertension Surgical History History of hysterectomy Family History Father No problems noted. Mother No problems noted. Social History Housing: House Alcohol intake: never Patient Tobacco Use Status: Never used Tobacco e-Cigarette/Vaping Use: Never Used Second Hand Smoke Exposure: No service: No Current occupational status: disabled Current occupational exposures/hazards: No Cognitive needs: No Hearing needs: No Vision needs: Yes (wears glasses) Questionnaire Thrive Questionnaire Date Thrive assessed: 07/25/24 I am a: Patient What is your living situation today?: I have a steady place to live Within the past 12 months, did the food you bought not last and you didn't have the money to get more?: Never true Within the past 12 months, did you worry whether your food would run out before you got money to buy more?: Never true Do you have trouble paying for medicines?: No Do you have trouble getting transportation to medical appointments?: Yes Do you have trouble paying your heating and electricity bill?: No Do you have trouble taking care of your child, family member or friend?: No Do you have trouble with day-to-day activities such as bathing, preparing meals, shopping, managing finances, etc.?: No Are you currently unemployed and looking for a job?: No Are you interested in more education?: No Please select the resources that you would like help with: None Currently or been in a relationship where the following occur: No concerns reported THRIVE Score: 1 ROHITH-7 AMB Questionnaire ROHITH-7 Date ROHITH - 7 assessed: 07/25/24 Source: Developed by Drs. Alin Gustafson, Radha Cardona, Andry Slater and colleagues, with an educational yamilex from [employer]. Review of Systems Const Details: Const Denies chills, Denies fatigue, Denies fever(s), Denies headache(s) and Denies weakness ENT Denies dizziness and Denies headache(s) Card Denies chest pain, Denies lightheadedness, Denies dyspnea and Denies other (Palpitations) Resp Denies cough, Denies dyspnea, Denies wheezing and Denies other ( shortness of breath) GI Denies abdominal pain, Denies melena, Denies hematochezia, Denies change in bowel habits, Denies dyspepsia and Denies nausea Denies hematuria and Denies dysuria Musc Reports Skin/Breast Denies rash, Denies unusual bruising and Denies wounds Neuro Denies abnormal gait, Denies dizziness, Denies headache(s), Denies memory loss, Denies numbness, Denies Sensory deficit (Neuro), Denies tingling and Denies weakness Psych Denies anxiety, Denies depression, Denies memory loss Endo Denies cold intolerance, Denies fatigue, Denies heat intolerance, Denies polydipsia and Denies polyuria Aller/Immun Denies wheezing Physical exam (Primary Care) Vital Signs: Last Vital Signs Temp 98.1 F 10/25/24 12:39 Pulse 62 10/25/24 12:39 Resp 16 10/25/24 12:39 BP 144/80 H 10/25/24 12:42 Pulse Ox 99 10/25/24 12:39 Oxygen Delivery Method Room Air 10/25/24 12:39 BMI result Body Mass Index 42.0 Tobacco/Smoking Status: Tobacco use Status Tobacco use date assessed 10/25/24 10/25/24 12:39 Patient Tobacco Use Status Never used Tobacco 10/25/24 12:31 e-Cigarette/Vaping Use Never Used 10/25/24 12:31 Thrive Assessment: Date of Thrive Assessment Date Thrive assessed 07/25/24 10/25/24 12:31 Currently or been in a relationship where the following occur: No concerns reported Const Other: General: no acute distress and well developed Nutritional Appearance: well nourished Orientation/consciousness: patient oriented x3 HENMT Head: Yes normocephalic and Yes atraumatic Eyes General: appearance normal, both eyes and all related structures Pupils: Equal, round and reactive pupils present EOM: EOMs intact bilaterally Resp Effort & Inspection: normal respiratory effort Auscultation: clear to auscultation bilaterally Cardio Rate: regular rate Rhythm: regular rhythm Heart sounds: S1 normal heart sound present, S2 normal heart sound present, no gallops, no murmurs and no rubs GI Palpation (GI): No Abdominal aortic bruit present, Soft to palpation, nontender, No hepatosplenomegaly present and No Rebound tenderness present Auscultation: normal bowel sounds General: Yes no CVA tenderness Back/Spine/Pelvis Back: no CVA tenderness Cervical Spine: cervical ROM normal and No Cervical spine tenderness Thoracic/Lumbar Spine: thoraco-lumbar ROM normal, No pain with thoraco-lumbar ROM, No thoracic spinal tenderness and No lumbar spinal tenderness Extrem General: Yes normal to inspection, No edema and No calf tenderness Skin General: warm and dry. Normal skin color. Normal skin turgor Lesions: no lesions Rashes: no rashes Trauma: no lacerations or abrasions Wounds: no wounds Nails: normal Neuro General: patient oriented x3, gait normal and no focal neuro deficit Cranial nerves: Yes Equal, round and reactive pupils present Cognition (Neuro): normal cognition Gait exam (Neuro): Normal gait present Sensory Exam: No Sensory deficit (Neuro) Psych Appearance: grossly normal Affect: normal affect Attitude: cooperative Thought process: Normal thought process present Results AMB Hemoglobin A1c AMB Hemoglobin A1c 6.4 % Last Edit by Nina Mims MA on 10/25/24 12:51 Results Reviewed Results Reviewed: Laboratory Last Values Hgb A1c (Clinic) 6.4 % (4.0-6.0) H 10/25/24 12:44 Coding Level of Care Code Est Pt Level 4 (44644) Diagnoses Type 2 diabetes mellitus E11.9 Primary hypertension I10 Hypertension type: primary hypertension Right arm pain M79.601 Assessment & Plan Assessment & Plan (1) Type 2 diabetes mellitus: Code(s): E11.9 - Type 2 diabetes mellitus without complications Category: Medical Plan: A1c today is 6.4%, within goal of less than 7.0% .Previous A1c was 6.1% Continue current treatment regimen. ADA diet and routine exercise encouraged. Will recheck A1c in 3 months. Verbalized understanding and agreed with the treatment plan. (2) Hypertension: Code(s): I10 - Essential (primary) hypertension Category: Medical Qualifiers: Hypertension type: primary hypertension Qualified Code(s): I10 - Essential (primary) hypertension Plan: Resting blood pressure is 144/80, above goal of less than 130/80. Will increase losartan to 100 mg daily; advised to take as prescribed. Continue to take hydrochlorothiazide 25 mg daily. Low-sodium diet encouraged. Follow-up in 1 month or sooner with symptoms or concerns. Verbalized understanding and agreed with treatment plan. (3) Right arm pain: Code(s): M79.601 - Pain in right arm Category: Medical Plan: She reports intermittent sharp pain from her entire right arm - shoulder to the hand for the past several months. She denies tingling or numbness. No acute symptoms at this time. She denies fall, injury, trauma. Will check vitamin B12 and folate level to rule out neuropathy. X-ray of right shoulder ordered. Encouraged to take Celebrex and Tylenol as prescribed. Follow-up with worsening or new symptoms. Verbalized understanding and agreed with the plan. Orders: Orders AMB Hemoglobin A1c Today Z13.9 - Encounter for screening, unspecified XR shoulder RT 1V Today M79.601 - Pain in right arm Vitamin B12 and Folate Today M79.601 - Pain in right arm Medications: New losartan 100 mg PO DAILY 30 days 30 tabs 3RF Refilled acetaminophen ER (Tylenol 8 Hour) Afternoon and night 650 mg PO Q8H PRN 60 tabs 3RF pain Discontinued losartan Take with Losartan 50 mg daily to equal 75 mg daily Discontinued Reason: Doctor's Order 25 mg PO DAILY 90 days 90 tabs 1RF
[2024-10-25 12:39] VITALS: BP 172/79; PULSE 62; RESP 16; TEMP 36.7; O2SAT 99; BMI 42.0
[2024-10-25 12:42] VITALS: BP 144/80
== END 2024-10-25 13:03 | disposition home or self-care (01) ==
LOC: HO.HMCFM 12:26
PROVIDERS: PCP Nurse Practitioner Family; Visit Provider Nurse Practitioner Family
DX: E11.9 Type 2 diabetes mellitus without complications (principal); I10 Essential (primary) hypertension; M79.601 Pain in right arm; Z13.9 Encounter for screening, unspecified

== ENCOUNTER → 2024-10-25 12:25 | Outpatient (BNVA) | payer MEDICAID, SELFPAY | PROVIDERS: PCP Nurse Practitioner Family; Visit Provider Nurse Practitioner Family | DX: E11.9 Type 2 diabetes mellitus without complications (principal); I10 Essential (primary) hypertension; M79.601 Pain in right arm | CPT/HCPCS: 83036; 99212 ==

== ENCOUNTER 2024-12-06 11:25 | Outpatient (REF) | payer MEDICAID, SELFPAY ==
--- NOTE | ~2024-12-06 | XR_ITS ---
CLINICAL HISTORY: M79.601 - Pain in right arm 3 views right shoulder Comparison: None Findings: 4 images were obtained. No acute fracture or dislocation. AC joint is not well seen due to overlying scapula, small undersurface osteophyte noted. Unremarkable glenohumeral joint. Unremarkable visualized right lung. Soft tissue is unremarkable. Impression: Minimal degenerative changes of the AC joint. This document has been electronically signed by: Mayra Kaba MD on 12/07/2024 12:13:47
[2024-12-06 12:49] LABS: Folate 10.2 ng/mL (> or = 4.0); Vitamin B12 391 pg/mL (200-900)
== END 2024-12-06 11:26 | disposition home or self-care (01) ==
LOC: HO.LAB 11:25
PROVIDERS: PCP Nurse Practitioner Family; Visit Provider Nurse Practitioner Family
DX: M79.601 Pain in right arm (principal)
CPT/HCPCS: 36415; 73030; 82607; 82746

== ENCOUNTER → 2024-12-06 11:38 | Outpatient (BNV) | payer MEDICAID, SELFPAY | PROVIDERS: PCP Nurse Practitioner Family; Visit Provider Radiology Diagnostic Radiology | DX: M79.601 Pain in right arm (principal) | CPT/HCPCS: 73030 ==

== ENCOUNTER 2024-12-19 12:56 | Outpatient (AMB) | payer MEDICAID, SELFPAY ==
--- NOTE | 2024-12-19 12:59 | A.OFFPC_ITS ---
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 Accompanied by: Daughter Is last menstrual period known: No Post menopausal: No Patient : No Allergies No Known Allergies Allergy (Verified 12/19/24 13:28) Medication List - Last Reconciled 12/19/24 by Segundo Martinez CNP acetaminophen ER (Tylenol 8 Hour) 650 mg PO Q8H PRN celecoxib (Celebrex) 200 mg PO .AM 90 days diclofenac sodium 1% (Voltaren Arthritis Pain) 2 grams topical QID PRN 30 days dorzolamide-timolol (PF) 2-0.5 % 1 drp ophthalmic (eye) BID hydrochlorothiazide 25 mg PO DAILY 90 days latanoprost 0.005% 1 drp ophthalmic (eye) QPM 90 days losartan 100 mg PO DAILY 30 days metformin 500 mg PO DAILY 90 days miscellaneous medical supply 1 cane for ambulation solifenacin (Vesicare) 10 mg PO DAILY Tobacco use date assessed: 12/19/24 Fall risk assessment: No Falls in past year Last assessed Fall Risk: 12/19/24 Dental Screening Dental Screen Date: 12/19/24 Did you have a dental visit in the last 12 months?: No Did you have a dental problem in the last 6 months where you did not have access to dental care?: No Was dental information given to patient?: Patient has dentist HPI HPI Comments History of Present Illness Details 74-year-old Creole speaking female, acco mpanied by her daughter, presents for hypertension follow-up. She admits to taking her medications as prescribed without adverse reactions. She has been making healthy lifestyle changes, including low-sodium diet. No acute symptoms at this time Interpretation by the patient's daughter per patient's preference. [facility] Medical History Glaucoma Arthritis Hypertension Surgical History History of hysterectomy Family History Father No problems noted. Mother No problems noted. Social History Housing: House Alcohol intake: never Patient Tobacco Use Status: Never used Tobacco e-Cigarette/Vaping Use: Never Used Second Hand Smoke Exposure: No Patient : No service: No Current occupational status: disabled Current occupational exposures/hazards: No Cognitive needs: No Hearing needs: No Vision needs: Yes (wears glasses) Questionnaire Thrive Questionnaire Date Thrive assessed: 07/25/24 I am a: Patient What is your living situation today?: I have a steady place to live Within the past 12 months, did the food you bought not last and you didn't have the money to get more?: Never true Within the past 12 months, did you worry whether your food would run out before you got money to buy more?: Never true Do you have trouble paying for medicines?: No Do you have trouble getting transportation to medical appointments?: Yes Do you have trouble paying your heating and electricity bill?: No Do you have trouble taking care of your child, family member or friend?: No Do you have trouble with day-to-day activities such as bathing, preparing meals, shopping, managing finances, etc.?: No Are you currently unemployed and looking for a job?: No Are you interested in more education?: No Please select the resources that you would like help with: None Currently or been in a relationship where the following occur: No concerns reported THRIVE Score: 1 ROHITH-7 AMB Questionnaire ROHITH-7 Date ROHITH - 7 assessed: 07/25/24 Source: Developed by Drs. Alin Gustafson, Radha Cardona, Andry Slater and colleagues, with an educational yamilex from [email or web address]. Review of Systems Const Details: Const Denies chills, Denies fatigue, Denies fever(s), Denies headache(s) and Denies we akness ENT Denies dizziness and Denies headache(s) Card Denies chest pain, Denies lightheadedness, Denies dyspnea and Denies other (Palpitations) Resp Denies cough, Denies dyspnea, Denies wheezing and Denies other ( shortness of breath) GI Denies abdominal pain, Denies melena, Denies hematochezia, Denies change in bowel habits, Denies dyspepsia and Denies nausea Denies hematuria and Denies dysuria Musc Denies abnormal gait, Denies myalgias, Denies arthralgias, Denies numbness and Denies tingling Skin/Breast Denies rash, Denies unusual bruising and Denies wounds Neuro Denies abnormal gait, Denies dizziness, Denies headache(s), Denies memory loss, Denies numbness, Denies Sensory deficit (Neuro), Denies tingling and Denies weakness Psych Denies anxiety, Denies depression, Denies memory loss Endo Denies cold intolerance, Denies fatigue, Denies heat intolerance, Denies polydipsia and Denies polyuria Aller/Immun Denies wheezing Physical exam (Primary Care) Vital Signs: Last Vital Signs Temp 98.4 F 12/19/24 13:07 Pulse 63 12/19/24 13:07 Resp 16 12/19/24 13:07 BP 130/70 12/19/24 13:33 Pulse Ox 98 12/19/24 13:07 Oxygen Delivery Method Room Air 12/19/24 13:07 BMI result Body Mass Index 40.7 Tobacco/Smoking Status: Tobacco use Status Tobacco use date assessed 12/19/24 12/19/24 13:10 Patient Tobacco Use Status Never used Tobacco 12/19/24 13:00 e-Cigarette/Vaping Use Never Used 12/19/24 13:00 Thrive Assessment: Date of Thrive Assessment Date Thrive assessed 07/25/24 12/19/24 13:00 Currently or been in a relationship where the following occur: No concerns reported Const Other: General: no acute distress and well developed Nutritional Appearance: well nourished Orientation/consciousness: patient oriented x3 HENMT Head: Yes normocephalic and Yes atraumatic Eyes General: appearance normal, both eyes and all related structures Pupils: Equal, round and reactive pupils present EOM: EOMs intact bilaterally Resp Effort & Inspection: normal respiratory effort Auscultation: clear to auscultation bilaterally Cardio Rate: regular rate Rhythm: regular rhythm Heart sounds: S1 normal heart sound present, S2 normal heart sound present, no gallops, no murmurs and no rubs GI Palpation (GI): No Abdominal aortic bruit present, Soft to palpation, nontender, No hepatosplenomegaly present and No Rebound tenderness present Auscultation: normal bowel sounds General: Yes no CVA tenderness Back/Spine/Pelvis Back: no CVA tenderness Cervical Spine: cervical ROM normal and No Cervical spine tenderness Thoracic/Lumbar Spine: thoraco-lumbar ROM normal, No pain with thoraco-lumbar ROM, No thoracic spinal tenderness and No lumbar spinal tenderness Extrem General: Yes normal to inspection, No edema and No calf tenderness Skin General: warm and dry. Normal skin color. Normal skin turgor Neuro General: patient oriented x3, gait normal and no focal neuro deficit Cranial nerves: Yes Equal, round and reactive pupils present Cognition (Neuro): normal cognition Gait exam (Neuro): Normal gait present Sensory Exam: No Sensory deficit (Neuro) Psych Appearance: grossly normal Affect: normal affect Attitude: cooperative Thought process: Normal thought process present Coding Level of Care Code Est Pt Level 3 (16217) Diagnoses Primary hypertension I10 Hypertension type: primary hypertension Assessment & Plan Assessment & Plan (1) Hypertension: Code(s): I10 - Essential (primary) hypertension Category: Medical Qualifiers: Hypertension type: primary hypertension Qualified Code(s): I10 - Essential (primary) hypertension Plan: Resting blood pressure is 130/70, slightly above goal of less than 130/80. Continue current treatment regimen. Low-sodium diet encouraged. Follow-up in 6 weeks for diabetes and hypertension. Return sooner with symptoms or concerns. Verbalized understanding and agreed with the plan. Recent x-ray of right shoulder reviewed with the patient. Medications: Refilled diclofenac sodium 1% (Voltaren Arthritis Pain) apply to right shoulder 2 grams topical QID PRN 100 grams 2RF pain 30 days M25.511 - Pain in right shoulder
[2024-12-19 13:07] VITALS: BP 157/72; PULSE 63; RESP 16; TEMP 36.9; O2SAT 98; BMI 40.7
[2024-12-19 13:33] VITALS: BP 130/70
== END 2024-12-19 13:40 | disposition home or self-care (01) ==
LOC: HO.HMCFM 12:56
PROVIDERS: PCP Nurse Practitioner Family; Visit Provider Nurse Practitioner Family
DX: I10 Essential (primary) hypertension (principal)

== ENCOUNTER → 2024-12-19 12:56 | Outpatient (BNVA) | payer MEDICAID, SELFPAY | PROVIDERS: PCP Nurse Practitioner Family; Visit Provider Nurse Practitioner Family | DX: I10 Essential (primary) hypertension (principal); M25.511 Pain in right shoulder | CPT/HCPCS: 99212 ==

== ENCOUNTER 2025-01-31 12:20 | Outpatient (AMB) | payer MEDICAID, SELFPAY ==
--- NOTE | 2025-01-31 12:23 | MHC.PC.OV ---
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 Banker Required: No Is last menstrual period known: No Post menopausal: No Patient : No Allergies No Known Allergies Allergy (Verified 01/31/25 12:54) Medication List - Last Reconciled 01/31/25 by Segundo Martinez CNP acetaminophen ER (Tylenol 8 Hour) 650 mg PO Q8H PRN celecoxib (Celebrex) 200 mg PO .AM 90 days diclofenac sodium 1% (Voltaren Arthritis Pain) 2 grams topical QID PRN 30 days dorzolamide-timolol (PF) 2-0.5 % 1 drp ophthalmic (eye) BID hydrochlorothiazide 25 mg PO DAILY 90 days latanoprost 0.005% 1 drp ophthalmic (eye) QPM 90 days losartan 100 mg PO DAILY 30 days metformin 500 mg PO DAILY 90 days miscellaneous medical supply 1 cane for ambulation solifenacin (Vesicare) 10 mg PO DAILY Tobacco use date assessed: 01/31/25 Fall risk assessment: No Falls in past year Last assessed Fall Risk: 01/31/25 Dental Screening Dental Screen Date: 01/31/25 Did you have a dental visit in the last 12 months?: No Did you have a dental problem in the last 6 months where you did not have access to dental care?: No Was dental information given to patient?: No HPI HPI Comments History of Present Illness Details 74-year-old Creole speaking female, accompanied by her daughter, presents for hypertension follow-up. She admits to taking her medications as prescribed without adverse reactions. She has been making healthy lifestyle changes, including low-sodium diet. She notes that her home bp is in 130s/80s. However, this morning, her blood pressure was 150/80 before taking her medications. No acute symptoms at this time. [facility] Medical History Glaucoma Arthritis Hypertension Surgical History History of hysterectomy Family History Father No problems noted. Mother No problems noted. Social History Housing: House Alcohol intake: never Patient Tobacco Use Status: Never used Tobacco e-Cigarette/Vaping Use: Never Used Second Hand Smoke Exposure: No service: No Current occupational status: disabled Current occupational exposures/hazards: No Cognitive needs: No Hearing needs: No Vision needs: Yes (wears glasses) Questionnaire Thrive Questionnaire Date Thrive assessed: 07/25/24 I am a: Patient What is your living situation today?: I have a steady place to live Within the past 12 months, did the food you bought not last and you didn't have the money to get more?: Never true Within the past 12 months, did you worry whether your food would run out before you got money to buy more?: Never true Do you have trouble paying for medicines?: No Do you have trouble getting transportation to medical appointments?: Yes Do you have trouble paying your heating and electricity bill?: No Do you have trouble taking care of your child, family member or friend?: No Do you have trouble with day-to-day activities such as bathing, preparing meals, shopping, managing finances, etc.?: No Are you currently unemployed and looking for a job?: No Are you interested in more education?: No Please select the resources that you would like help with: None Currently or been in a relationship where the following occur: No concerns reported THRIVE Score: 1 ROHITH-7 AMB Questionnaire ROHITH-7 Date ROHITH - 7 assessed: 07/25/24 Source: Developed by Drs. Alin Gustafson, Radha Cardona, Andry Slater and colleagues, with an educational yamilex from [employer]. Review of Systems Const Details: Const Denies chills, Denies fatigue, Denies fever(s), Denies headache(s) and Denies weakness ENT Denies dizziness and Denies headache(s) Card Denies chest pain, Denies lightheadedness, Denies dyspnea and Denies other (Palpitations) Resp Denies cough, Denies dyspnea, Denies wheezing and Denies other ( shortness of breath) GI Denies abdominal pain, Denies melena, Denies hematochezia, Denies change in bowel habits, Denies dyspepsia and Denies nausea Denies hematuria and Denies dysuria Musc Denies abnormal gait, Denies myalgias, Denies arthralgias, Denies numbness and Denies tingling Skin/Breast Denies rash, Denies unusual bruising and Denies wounds Neuro Denies abnormal gait, Denies dizziness, Denies headache(s), Denies memory loss, Denies numbness, Denies Sensory deficit (Neuro), Denies tingling and Denies weakness Psych Denies anxiety, Denies depression, Denies memory loss Endo Denies cold intolerance, Denies fatigue, Denies heat intolerance, Denies polydipsia and Denies polyuria Aller/Immun Denies wheezing Physical exam (Primary Care) Vital Signs: Last Vital Signs Temp 98.1 F 01/31/25 12:30 Pulse 63 01/31/25 12:30 Resp 16 01/31/25 12:30 BP 178/77 H 01/31/25 12:30 Pulse Ox 98 01/31/25 12:30 Oxygen Delivery Method Room Air 01/31/25 12:30 BMI result Body Mass Index 40.2 Tobacco/Smoking Status: Tobacco use Status Tobacco use date assessed 01/31/25 01/31/25 12:32 Patient Tobacco Use Status Never used Tobacco 01/31/25 12:27 e-Cigarette/Vaping Use Never Used 01/31/25 12:27 Thrive Assessment: Date of Thrive Assessment Date Thrive assessed 07/25/24 01/31/25 12:27 Currently or been in a relationship where the following occur: No concerns reported Const Other: General: no acute distress and well developed Nutritional Appearance: well nourished Orientation/consciousness: patient oriented x3 HENMT Head: Yes normocephalic and Yes atraumatic Eyes General: appearance normal, both eyes and all related structures Pupils: Equal, round and reactive pupils present EOM: EOMs intact bilaterally Resp Effort & Inspection: normal respiratory effort Auscultation: clear to auscultation bilaterally Cardio Rate: regular rate Rhythm: regular rhythm Heart sounds: S1 normal heart sound present, S2 normal heart sound present, no gallops, no murmurs and no rubs GI Palpation (GI): No Abdominal aortic bruit present, Soft to palpation, nontender, No hepatosplenomegaly present and No Rebound tenderness present Auscultation: normal bowel sounds General: Yes no CVA tenderness Back/Spine/Pelvis Back: no CVA tenderness Cervical Spine: cervical ROM normal and No Cervical spine tenderness Thoracic/Lumbar Spine: thoraco-lumbar ROM normal, No pain with thoraco-lumbar ROM, No thoracic spinal tenderness and No lumbar spinal tenderness Extrem General: Yes normal to inspection, No edema and No calf tenderness Skin General: warm and dry. Normal skin color. Normal skin turgor Neuro General: patient oriented x3, gait normal and no focal neuro deficit Cranial nerves: Yes Equal, round and reactive pupils present Cognition (Neuro): normal cognition Gait exam (Neuro): Normal gait present Sensory Exam: No Sensory deficit (Neuro) Psych Appearance: grossly normal Affect: normal affect Attitude: cooperative Thought process: Normal thought process present Results AMB Hemoglobin A1c AMB Hemoglobin A1c 6.0 % Last Edit by Nina Mims MA on 01/31/25 13:02 Coding Level of Care Code Est Pt Level 4 (34282) Diagnoses Primary hypertension I10 Hypertension type: primary hypertension Type 2 diabetes mellitus E11.9 Assessment & Plan Assessment & Plan (1) Hypertension: Code(s): I10 - Essential (primary) hypertension Category: Medical Qualifiers: Hypertension type: primary hypertension Qualified Code(s): I10 - Essential (primary) hypertension Plan: Resting blood pressure is 150/80, above goal of less than 130/80. She notes that her home bp is in 130s/80s. However, this morning, her blood pressure was 150/80 before taking her medications. Amlodipine 2.5 mg daily ordered; advised to take as prescribed. Instructed on the risks, benefits, and potential adverse reactions of the medication. Continue to take losartan and hydrochlorothiazide as prescribed. Low-sodium diet encouraged. Follow-up in 2 weeks or sooner with symptoms or concerns. Verbalized understanding and agreed with the plan. (2) Type 2 diabetes mellitus: Code(s): E11.9 - Type 2 diabetes mellitus without complications Category: Medical Plan: A1c today is 6.0%, within goal of less than 7.0%. Previous A1c was 6.4%. Continue current treatment regimen. ADA diet and routine exercise encouraged. Will recheck A1c in 3 months. Verbalized understanding and agreed with plan. Orders: Orders AMB Hemoglobin A1c Today Z13.9 - Encounter for screening, unspecified Medications: New amlodipine 2.5 mg PO DAILY 30 tabs 3RF 30 days
[2025-01-31 12:30] VITALS: BP 178/77; PULSE 63; RESP 16; TEMP 36.7; O2SAT 98; BMI 40.2
[2025-01-31 13:04] VITALS: BP 150/80
== END 2025-01-31 13:06 | disposition home or self-care (01) ==
LOC: HO.HMCFM 12:21
PROVIDERS: PCP Nurse Practitioner Family; Visit Provider Nurse Practitioner Family
DX: I10 Essential (primary) hypertension (principal); E11.9 Type 2 diabetes mellitus without complications; Z13.9 Encounter for screening, unspecified

== ENCOUNTER → 2025-01-31 12:20 | Outpatient (BNVA) | payer MEDICAID, SELFPAY | PROVIDERS: PCP Nurse Practitioner Family; Visit Provider Nurse Practitioner Family | DX: E11.9 Type 2 diabetes mellitus without complications (principal); I10 Essential (primary) hypertension | CPT/HCPCS: 83036; 99212 ==

== ENCOUNTER 2025-05-08 13:31 | Outpatient (AMB) | payer MEDICAID, SELFPAY ==
--- NOTE | 2025-05-08 13:42 | MHC.PC.OV ---
Vital Signs 05/08/25 13:50 05/08/25 14:11 Height 5 ft 6 in Weight 251 lb 2 oz BMI 40.5 BP 157/76 H 140/76 H Blood Pressure Location Rt brachial Rt brachial Position Sitting Sitting Respiration 16 Pulse 69 Pulse Source Pulse Oximeter Temp 98.3 F Temp Source Oral Pulse Oximetry (%) 99 Oxygen Delivery Method Room Air Intake Visit Reasons: dm check Intake Note: patient here for follow up on DM Senior Security Analyst Required: Yes Senior Security Analyst Name: pt refused w/daughter inlaw Information Interpreted: non-clinical & clinical Accompanied by: Daughter Is last menstrual period known: No Post menopausal: No Patient : No Allergies No Known Allergies Allergy (Verified 05/08/25 14:06) Medication List - Last Reconciled 05/08/25 by Segundo Martinez CNP acetaminophen ER (Tylenol 8 Hour) 650 mg PO Q8H PRN amlodipine 2.5 mg PO DAILY 30 days celecoxib (Celebrex) 200 mg PO .AM 90 days diclofenac sodium 1% (Voltaren Arthritis Pain) 2 grams topical QID PRN 30 days dorzolamide-timolol (PF) 2-0.5 % 1 drp ophthalmic (eye) BID hydrochlorothiazide 25 mg PO DAILY 90 days latanoprost 0.005% 1 drp ophthalmic (eye) QPM 90 days losartan 100 mg PO DAILY 30 days metformin 500 mg PO DAILY 90 days miscellaneous medical supply 1 cane for ambulation Tobacco use date assessed: 05/08/25 Fall risk assessment: 1 Fall in past year Last assessed Fall Risk: 05/08/25 Dental Screening Dental Screen Date: 05/08/25 Did you have a dental visit in the last 12 months?: No Did you have a dental problem in the last 6 months where you did not have access to dental care?: No Was dental information given to patient?: Patient has dentist HPI HPI Comments History of Present Illness Details 74-year-old Creole speaking female, accompanied by her daughter, presents for hypertension follow-up. She admits to taking her medications as prescribed without adverse reactions. She has been making healthy lifestyle changes, including low-sodium diet. She has not monitored her blood pressure at home recently. No acute symptoms at this time. Interpretation by the patient's daughter per patient's preference. [facility] Medical History Glaucoma Arthritis Hypertension Surgical History History of hysterectomy Family History Father No problems noted. Mother No problems noted. Social History Housing: House Alcohol intake: never Patient Tobacco Use Status: Never used Tobacco e-Cigarette/Vaping Use: Never Used Second Hand Smoke Exposure: No Patient : No service: No Current occupational status: disabled Current occupational exposures/hazards: No Cognitive needs: No Hearing needs: No Vision needs: Yes (wears glasses) Questionnaire Thrive Questionnaire Date Thrive assessed: 07/25/24 I am a: Patient What is your living situation today?: I have a steady place to live Within the past 12 months, did the food you bought not last and you didn't have the money to get more?: Never true Within the past 12 months, did you worry whether your food would run out before you got money to buy more?: Never true Do you have trouble paying for medicines?: No Do you have trouble getting transportation to medical appointments?: Yes Do you have trouble paying your heating and electricity bill?: No Do you have trouble taking care of your child, family member or friend?: No Do you have trouble with day-to-day activities such as bathing, preparing meals, shopping, managing finances, etc.?: No Are you currently unemployed and looking for a job?: No Are you interested in more education?: No Please select the resources that you would like help with: None Currently or been in a relationship where the following occur: No concerns reported THRIVE Score: 1 ROHITH-7 AMB Questionnaire ROHITH-7 Date ROHITH - 7 assessed: 07/25/24 Source: Developed by Drs. Alin Gustafson, Radha Cardona, Andry Slater and colleagues, with an educational yamilex from [employer]. Review of Systems Const Details: Const Denies chills, Denies fatigue, Denies fever(s), Denies headache(s) and Denies weakness ENT Denies dizziness and Denies headache(s) Card Denies chest pain, Denies lightheadedness, Denies dyspnea and Denies other (Palpitations) Resp Denies cough, Denies dyspnea, Denies wheezing and Denies other ( shortness of breath) GI Denies abdominal pain, Denies melena, Denies hematochezia, Denies change in bowel habits, Denies dyspepsia and Denies nausea Denies hematuria and Denies dysuria Musc Denies abnormal gait, Denies myalgias, Denies arthralgias, Denies numbness and Denies tingling Skin/Breast Denies rash, Denies unusual bruising and Denies wounds Neuro Denies abnormal gait, Denies dizziness, Denies headache(s), Denies memory loss, Denies numbness, Denies Sensory deficit (Neuro), Denies tingling and Denies weakness Psych Denies anxiety, Denies depression, Denies memory loss Endo Denies cold intolerance, Denies fatigue, Denies heat intolerance, Denies polydipsia and Denies polyuria Aller/Immun Denies wheezing Physical exam (Primary Care) Vital Signs: Last Vital Signs Temp 98.3 F 05/08/25 13:50 Pulse 69 05/08/25 13:50 Resp 16 05/08/25 13:50 BP 157/76 H 05/08/25 13:50 Pulse Ox 99 05/08/25 13:50 Oxygen Delivery Method Room Air 05/08/25 13:50 BMI result Body Mass Index 40.5 Tobacco/Smoking Status: Tobacco use Status Tobacco use date assessed 05/08/25 05/08/25 13:55 Patient Tobacco Use Status Never used Tobacco 05/08/25 13:42 e-Cigarette/Vaping Use Never Used 05/08/25 13:42 Thrive Assessment: Date of Thrive Assessment Date Thrive assessed 07/25/24 05/08/25 13:42 Currently or been in a relationship where the following occur: No concerns reported Const Other: General: no acute distress and well developed Nutritional Appearance: well nourished Orientation/consciousness: patient oriented x3 HENMT Head: Yes normocephalic and Yes atraumatic Eyes General: appearance normal, both eyes and all related structures Pupils: Equal, round and reactive pupils present EOM: EOMs intact bilaterally Resp Effort & Inspection: normal respiratory effort Auscultation: clear to auscultation bilaterally Cardio Rate: regular rate Rhythm: regular rhythm Heart sounds: S1 normal heart sound present, S2 normal heart sound present, no gallops, no murmurs and no rubs Extrem General: Yes normal to inspection, No edema and No calf tenderness Skin General: warm and dry. Normal skin color. Normal skin turgor Neuro General: patient oriented x3, gait normal and no focal neuro deficit Cranial nerves: Yes Equal, round and reactive pupils present Cognition (Neuro): normal cognition Gait exam (Neuro): Normal gait present Sensory Exam: No Sensory deficit (Neuro) Psych Appearance: grossly normal Affect: normal affect Attitude: cooperative Thought process: Normal thought process present Results AMB Hemoglobin A1c AMB Hemoglobin A1c 6.0 % Last Edit by VALDEMAR Sauceda on 05/08/25 14:15 Coding Level of Care Code Est Pt Level 4 (50068) Diagnoses Primary hypertension I10 Hypertension type: primary hypertension Type 2 diabetes mellitus E11.9 Assessment & Plan Assessment & Plan (1) Hypertension: Code(s): I10 - Essential (primary) hypertension Category: Medical Qualifiers: Hypertension type: primary hypertension Qualified Code(s): I10 - Essential (primary) hypertension Plan: Resting blood pressure is 140/76, above goal of less than 130/80. Amlodipine increased to 5 mg daily; advised to take as prescribed. Continue to take losartan and hydrochlorothiazide as prescribed. Low-sodium diet encouraged. Follow-up with PCP for an extended physical exam. Return sooner with symptoms or concerns. Verbalized understanding and agreed with the plan. (2) Type 2 diabetes mellitus: Code(s): E11.9 - Type 2 diabetes mellitus without complications Category: Medical Plan: A1c today 6.0%, within goal of less than 7.0%. Previous A1c was 6.0%. Continue current treatment regimen. ADA diet and routine exercise encouraged. Will recheck A1c in 3 months. Verbalized understanding and agreed with the plan. Orders: Orders AMB Hemoglobin A1c Today Z13.9 - Encounter for screening, unspecified Medications: New amlodipine 5 mg PO DAILY 30 tabs 0RF 30 days Discontinued amlodipine Discontinued Reason: Doctor's Order 2.5 mg PO DAILY 30 days 30 tabs 3RF
[2025-05-08 13:50] VITALS: BP 157/76; PULSE 69; RESP 16; TEMP 36.8; O2SAT 99; BMI 40.5
[2025-05-08 14:11] VITALS: BP 140/76
== END 2025-05-08 14:20 | disposition home or self-care (01) ==
LOC: HO.HMCFM 13:32
PROVIDERS: PCP Nurse Practitioner Family; Visit Provider Nurse Practitioner Family
DX: I10 Essential (primary) hypertension (principal); E11.9 Type 2 diabetes mellitus without complications; Z13.9 Encounter for screening, unspecified

== ENCOUNTER → 2025-05-08 13:31 | Outpatient (BNVA) | payer MEDICAID, SELFPAY | PROVIDERS: PCP Nurse Practitioner Family; Visit Provider Nurse Practitioner Family | DX: I10 Essential (primary) hypertension (principal); E11.9 Type 2 diabetes mellitus without complications | CPT/HCPCS: 83036; 99212 ==